=== PATIENT | male | born 1955 | race African-American/Black ===

== ENCOUNTER 2016-10-01 12:14 | Inpatient (IN) | payer MEDICARE, MEDICAID ==
[2016-10-01] VITALS (9 sets, daily range): BP systolic 165–188; BP diastolic 70–96
[~2016-10-01] VITALS: Ht 167.6 cm; Wt 56.7 kg
[~2016-10-01 12:14] MED LIST: ACET160S PO; ALLO100T PO; ASPI81TA2 PO; BISA10SU61 RC; CRAN425C PO; DOCU-25 PO; MAGN400O4 PO; NA P133E RC; POTA20PA15 PO; VALP250S3 PO
[2016-10-01 13:30] LABS: BASOPHILS % (AUTO) 0.5 % (0.0-2.0); DIFF TOTAL % 100 %; EOSINOPHILS # (AUTO) 0.3 /CMM (0.0-0.7); EOSINOPHILS % (AUTO) 5.7 % (0.0-6.0); HEMATOCRIT 21 % (39-51); LYMPHOCYTES # (AUTO) 1.2 /CMM (0.8-4.8); MEAN CORPUSCULAR HEMOGLOBIN 33 PG (26.0-33.0); MEAN CORPUSCULAR HGB CONC 32 g/dl (31.0-36.0); MEAN CORPUSCULAR VOLUME 102 fL (80-96); MONOCYTES # (AUTO) 0.4 /CMM (0.1-1.30); MONOCYTES % (AUTO) 7.2 % (2.0-12.0); NEUTROPHILS # (AUTO) 3.2 /CMM (1.8-8.9); NEUTROPHILS % (AUTO) 62.6 % (43.0-81.0); PLATELET COUNT (AUTO) 193 /CMM (150-450); RED BLOOD CELL COUNT(AUTO) 2.06 MIL/uL (4.5-6.0); WHITE BLOOD COUNT (AUTO) 5.1 K/uL (4.3-11.0)
[2016-10-01 13:33] LABS: HEMOGLOBIN 6.7 g/dL (13.5-17.5)
[2016-10-01 13:46] LABS: INR 0.93 (0.87-1.13)
[2016-10-01 13:52] LABS: ALBUMIN 3.3 g/dL (3.4-5.0); BILIRUBIN,DIRECT 0.1 mg/dL (0.0-0.2); BILIRUBIN,TOTAL 0.3 mg/dL (0.2-1.0); CALCIUM, SERUM 8.6 mg/dL (8.5-10.1); INDIRECT BILIRUBIN 0.2 mg/dL (0.0-1.1); POTASSIUM 4.2 mmol/L (3.5-5.1); TOTAL PROTEIN, SERUM 6.8 g/dL (6.4-8.2)
[2016-10-01] MEDS ORDERED: PANTOPRAZOLE 40 MG VIAL IV ONE (14:00)
[2016-10-01 14:03] LABS: CREATININE 10.1 mg/dL (0.6-1.3)
[2016-10-01] MEDS ORDERED: BLOOD IV SET 1 EA INFUS.SET MC ONE (14:03)
[2016-10-01] MEDS ORDERED: IV NS 0.9% 50 ML IV ONE (14:03)
[2016-10-01] MEDS ORDERED: PANTOPRAZOLE 40 MG VIAL ONE (14:03)
[2016-10-01] MEDS ORDERED: ACET-868 PO (14:09)
[2016-10-01] MEDS ORDERED: BENA20TA2 PO (14:09)
[2016-10-01] MEDS ORDERED: CARV6.25 PO (14:09)
[2016-10-01] MEDS ORDERED: PANT40TA4 PO (14:09)
[2016-10-01] MEDS ORDERED: BENA10TA2 PO (14:09)
[2016-10-01] MEDS ORDERED: HYDR-3326 PO (14:09)
[2016-10-01] MEDS ORDERED: CHOL100044 PO (14:09)
[2016-10-01] MEDS ORDERED: FOLI0.4T2 PO (14:09)
[2016-10-01] MEDS ORDERED: AMIN30LI4 PO (14:09)
[2016-10-01] MEDS ORDERED: CYAN100096 PO (14:09)
[2016-10-01] MEDS ORDERED: SEVE400T PO (14:09)
[2016-10-01 14:40] LABS: EOSINOPHILS % (MANUAL) 4 % (0-4); LYMPHOCYTES % (MANUAL) 25 % (16-48); PLATELET ESTIMATE ADEQUATE
[2016-10-01 14:41] LABS: ANISOCYTOSIS 1+; HYPOCHROMASIA SLT
[2016-10-01] MEDS ORDERED: DILTIAZEM HCL 30 MG TABLET PO ONE (18:30)
[2016-10-01] MEDS: DOCUSATE SODIUM 100 MG CAPSULE PO SCH (21:30)
[2016-10-01] MEDS: hydrALAZINE HCL IV 20 MG VIAL IV PRN (21:46)
[2016-10-02] VITALS: BP 144/60
[2016-10-02 04:00] VITALS: BP 138/72
[2016-10-02 08:00] VITALS: BP 149/90
[2016-10-02] MEDS ORDERED: ACETAMINOPHEN 325 MG TABLET PO PRN (08:30)
[2016-10-02] MEDS: PANTOPRAZOLE 40 MG TABLET.DR PO SCH ×2 (08:50→17:07)
[2016-10-02] MEDS: FOLIC ACID 1 MG TABLET PO SCH (08:50)
[2016-10-02] MEDS: SEVELAMER CARBONATE 800 MG TABLET PO SCH ×3 (08:50→17:06)
[2016-10-02] MEDS: CARVEDILOL 6.25 MG TABLET PO SCH ×2 (08:50→17:06)
[2016-10-02] MEDS: BENAZEPRIL HCL 20 MG TABLET PO SCH ×2 (08:50→17:06)
[2016-10-02] MEDS: CYANOCOBALAMIN 500 MCG TABLET PO SCH (08:50)
[2016-10-02] MEDS: PROSOURCE / PROSTAT (PYXIS) 30 ML UDC PO SCH (08:51)
[2016-10-02] MEDS ORDERED: EPOETIN ALFA (10,000 UNIT) 10,000 UNIT/ML VIAL IV ONE (10:00)
[2016-10-02 11:24] LABS: BASOPHILS # (AUTO) 0.1 /CMM (0.0-0.2); DIFF TOTAL % 100 %; EOSINOPHILS # (AUTO) 0.4 /CMM (0.0-0.7); EOSINOPHILS % (AUTO) 5.5 % (0.0-6.0); HEMATOCRIT 25 % (39-51); HEMOGLOBIN 8.2 g/dL (13.5-17.5); LYMPHOCYTES # (AUTO) 0.9 /CMM (0.8-4.8); LYMPHOCYTES % (AUTO) 14.5 % (20.0-44.0); MEAN CORPUSCULAR HEMOGLOBIN 31 PG (26.0-33.0); MEAN CORPUSCULAR HGB CONC 33 g/dl (31.0-36.0); MEAN CORPUSCULAR VOLUME 94 fL (80-96); MONOCYTES # (AUTO) 0.5 /CMM (0.1-1.30); MONOCYTES % (AUTO) 7.2 % (2.0-12.0); NEUTROPHILS # (AUTO) 4.6 /CMM (1.8-8.9); NEUTROPHILS % (AUTO) 71.8 % (43.0-81.0); PLATELET COUNT (AUTO) 177 /CMM (150-450); RED BLOOD CELL COUNT(AUTO) 2.63 MIL/uL (4.5-6.0); WHITE BLOOD COUNT (AUTO) 6.4 K/uL (4.3-11.0)
[2016-10-02 11:39] LABS: LACTIC ACID 0.6 mmol/L (0.4-2.0)
[2016-10-02 11:40] LABS: ALBUMIN 3.1 g/dL (3.4-5.0); BILIRUBIN,DIRECT 0.1 mg/dL (0.0-0.2); BILIRUBIN,TOTAL 0.4 mg/dL (0.2-1.0); CALCIUM, SERUM 8.5 mg/dL (8.5-10.1); INDIRECT BILIRUBIN 0.3 mg/dL (0.0-1.1); PHOSPHORUS 7.3 mg/dL (2.5-4.9); POTASSIUM 4.6 mmol/L (3.5-5.1); TOTAL PROTEIN, SERUM 6.3 g/dL (6.4-8.2)
[2016-10-02 11:42] LABS: CREATININE 10.4 mg/dL (0.6-1.3)
[2016-10-02 11:53] LABS: INR 0.94 (0.87-1.13); PROTHROMBIN TIME 10.1 SECS (9.5-12.7)
[2016-10-02 11:59] LABS: ERYTHROCYTE SEDIMENTATION RATE 32 MM/HR (0-20)
[2016-10-02 12:00] VITALS: BP 155/87
[2016-10-02 16:00] VITALS: BP 156/86
[2016-10-02 20:00] VITALS: BP 156/93
[2016-10-02] MEDS: DOCUSATE SODIUM 100 MG CAPSULE PO SCH (21:16)
[2016-10-03] VITALS: BP 176/105
[2016-10-03] MEDS: hydrALAZINE HCL IV 20 MG VIAL IV PRN ×2 (00:25→06:45)
[2016-10-03 04:00] VITALS: BP_SYST 125; BP_SYST 163; BP_DIAS 80; BP_DIAS 85
[2016-10-03 06:52] LABS: BASOPHILS # (AUTO) 0.1 /CMM (0.0-0.2); DIFF TOTAL % 100 %; EOSINOPHILS # (AUTO) 0.3 /CMM (0.0-0.7); EOSINOPHILS % (AUTO) 5.3 % (0.0-6.0); HEMATOCRIT 24 % (39-51); HEMOGLOBIN 7.9 g/dL (13.5-17.5); LYMPHOCYTES # (AUTO) 1.1 /CMM (0.8-4.8); LYMPHOCYTES % (AUTO) 18.6 % (20.0-44.0); MEAN CORPUSCULAR HEMOGLOBIN 31 PG (26.0-33.0); MEAN CORPUSCULAR HGB CONC 33 g/dl (31.0-36.0); MEAN CORPUSCULAR VOLUME 95 fL (80-96); MONOCYTES # (AUTO) 0.6 /CMM (0.1-1.30); MONOCYTES % (AUTO) 9.8 % (2.0-12.0); NEUTROPHILS # (AUTO) 3.9 /CMM (1.8-8.9); NEUTROPHILS % (AUTO) 65.3 % (43.0-81.0); PLATELET COUNT (AUTO) 160 /CMM (150-450); RED BLOOD CELL COUNT(AUTO) 2.53 MIL/uL (4.5-6.0)
[2016-10-03 07:17] LABS: ALBUMIN 2.8 g/dL (3.4-5.0); BILIRUBIN,TOTAL 0.3 mg/dL (0.2-1.0); CREATININE 6.9 mg/dL (0.6-1.3); PHOSPHORUS 4.7 mg/dL (2.5-4.9); POTASSIUM 3.7 mmol/L (3.5-5.1)
[2016-10-03 07:47] LABS: TROPONIN I 0.442 ng/mL (0.00-0.056)
[2016-10-03 08:00] VITALS: BP 161/90
[2016-10-03] MEDS: SEVELAMER CARBONATE 800 MG TABLET PO SCH ×3 (09:07→17:03)
[2016-10-03] MEDS: PROSOURCE / PROSTAT (PYXIS) 30 ML UDC PO SCH (09:07)
[2016-10-03] MEDS: CYANOCOBALAMIN 500 MCG TABLET PO SCH (09:07)
[2016-10-03] MEDS: CARVEDILOL 6.25 MG TABLET PO SCH ×2 (09:07→17:03)
[2016-10-03] MEDS: PANTOPRAZOLE 40 MG TABLET.DR PO SCH ×2 (09:08→17:03)
[2016-10-03] MEDS: FOLIC ACID 1 MG TABLET PO SCH (09:08)
[2016-10-03] MEDS: BENAZEPRIL HCL 20 MG TABLET PO SCH ×2 (09:08→17:03)
[2016-10-03 12:00] VITALS: BP 137/68
[2016-10-03 16:00] VITALS: BP 160/83
[2016-10-03 20:00] VITALS: BP 147/81
[2016-10-03] MEDS: DOCUSATE SODIUM 100 MG CAPSULE PO SCH (21:22)
[2016-10-04] VITALS (11 sets, daily range): BP systolic 139–168; BP diastolic 71–95
[2016-10-04] MEDS: HYDROCODONE/APAP 5/325MG 1 EACH TABLET PO PRN (04:47)
[2016-10-04 06:47] LABS: BASOPHILS % (AUTO) 0.7 % (0.0-2.0); DIFF TOTAL % 100 %; EOSINOPHILS # (AUTO) 0.4 /CMM (0.0-0.7); EOSINOPHILS % (AUTO) 6.5 % (0.0-6.0); HEMATOCRIT 23 % (39-51); HEMOGLOBIN 7.4 g/dL (13.5-17.5); LYMPHOCYTES # (AUTO) 1.3 /CMM (0.8-4.8); LYMPHOCYTES % (AUTO) 23.3 % (20.0-44.0); MEAN CORPUSCULAR HEMOGLOBIN 32 PG (26.0-33.0); MEAN CORPUSCULAR HGB CONC 33 g/dl (31.0-36.0); MEAN CORPUSCULAR VOLUME 97 fL (80-96); MONOCYTES # (AUTO) 0.5 /CMM (0.1-1.30); MONOCYTES % (AUTO) 9.5 % (2.0-12.0); NEUTROPHILS # (AUTO) 3.4 /CMM (1.8-8.9); PLATELET COUNT (AUTO) 146 /CMM (150-450); RED BLOOD CELL COUNT(AUTO) 2.35 MIL/uL (4.5-6.0); WHITE BLOOD COUNT (AUTO) 5.6 K/uL (4.3-11.0)
[2016-10-04 07:28] LABS: POTASSIUM 3.9 mmol/L (3.5-5.1)
[2016-10-04] MEDS: PROSOURCE / PROSTAT (PYXIS) 30 ML UDC PO SCH (09:03)
[2016-10-04] MEDS: CYANOCOBALAMIN 500 MCG TABLET PO SCH (09:03)
[2016-10-04] MEDS: SEVELAMER CARBONATE 800 MG TABLET PO SCH ×3 (09:03→18:13)
[2016-10-04] MEDS: PANTOPRAZOLE 40 MG TABLET.DR PO SCH ×2 (09:04→18:13)
[2016-10-04] MEDS: BENAZEPRIL HCL 20 MG TABLET PO SCH ×2 (09:04→18:14)
[2016-10-04] MEDS: FOLIC ACID 1 MG TABLET PO SCH (09:04)
[2016-10-04] MEDS: CARVEDILOL 6.25 MG TABLET PO SCH ×2 (09:04→18:14)
[2016-10-04] MEDS ORDERED: BLOOD IV SET 1 EA INFUS.SET MC ONE (11:04)
[2016-10-04] MEDS ORDERED: IV NS 0.9% 0 ML IV ONE (11:04)
[2016-10-04] MEDS: DOCUSATE SODIUM 100 MG CAPSULE PO SCH (21:57)
[2016-10-05 04:00] VITALS: BP 140/90
[2016-10-05] MEDS: HYDROCODONE/APAP 5/325MG 1 EACH TABLET PO PRN (04:01)
[2016-10-05 06:33] LABS: BASOPHILS % (AUTO) 0.5 % (0.0-2.0); DIFF TOTAL % 100 %; EOSINOPHILS # (AUTO) 0.5 /CMM (0.0-0.7); EOSINOPHILS % (AUTO) 7.3 % (0.0-6.0); HEMATOCRIT 32 % (39-51); HEMOGLOBIN 10.7 g/dL (13.5-17.5); LYMPHOCYTES # (AUTO) 1.5 /CMM (0.8-4.8); MEAN CORPUSCULAR HEMOGLOBIN 32 PG (26.0-33.0); MEAN CORPUSCULAR HGB CONC 33 g/dl (31.0-36.0); MEAN CORPUSCULAR VOLUME 95 fL (80-96); MONOCYTES # (AUTO) 0.6 /CMM (0.1-1.30); MONOCYTES % (AUTO) 9.2 % (2.0-12.0); PLATELET COUNT (AUTO) 136 /CMM (150-450); RED BLOOD CELL COUNT(AUTO) 3.39 MIL/uL (4.5-6.0); WHITE BLOOD COUNT (AUTO) 6.6 K/uL (4.3-11.0)
[2016-10-05 06:43] LABS: CALCIUM, SERUM 8.3 mg/dL (8.5-10.1); CREATININE 6.6 mg/dL (0.6-1.3); POTASSIUM 3.7 mmol/L (3.5-5.1)
[2016-10-05 08:00] VITALS: BP 172/98
[2016-10-05] MEDS: PROSOURCE / PROSTAT (PYXIS) 30 ML UDC PO SCH (08:40)
[2016-10-05] MEDS: SEVELAMER CARBONATE 800 MG TABLET PO SCH ×3 (08:41→17:03)
[2016-10-05] MEDS: CYANOCOBALAMIN 500 MCG TABLET PO SCH (08:41)
[2016-10-05] MEDS: BENAZEPRIL HCL 20 MG TABLET PO SCH ×2 (08:42→17:04)
[2016-10-05] MEDS: CARVEDILOL 6.25 MG TABLET PO SCH ×2 (08:42→17:04)
[2016-10-05] MEDS: FOLIC ACID 1 MG TABLET PO SCH (08:43)
[2016-10-05] MEDS: PANTOPRAZOLE 40 MG TABLET.DR PO SCH ×2 (08:43→17:03)
[2016-10-05] MEDS: hydrALAZINE HCL 10 MG TABLET PO SCH ×3 (08:43→21:32)
[2016-10-05 12:00] VITALS: BP 162/93
[2016-10-05 16:00] VITALS: BP_SYST 162; BP_DIAS 92; BP_DIAS 98
[2016-10-05 20:00] VITALS: BP 173/97
[2016-10-05] MEDS: DOCUSATE SODIUM 100 MG CAPSULE PO SCH (21:31)
[2016-10-06 04:00] VITALS: BP 188/95
[2016-10-06] MEDS: hydrALAZINE HCL 10 MG TABLET PO SCH (04:11)
[2016-10-06 07:34] LABS: BASOPHILS % (AUTO) 0.8 % (0.0-2.0); DIFF TOTAL % 100 %; EOSINOPHILS # (AUTO) 0.4 /CMM (0.0-0.7); HEMATOCRIT 35 % (39-51); HEMOGLOBIN 11.7 g/dL (13.5-17.5); LYMPHOCYTES # (AUTO) 1.2 /CMM (0.8-4.8); LYMPHOCYTES % (AUTO) 19.5 % (20.0-44.0); MEAN CORPUSCULAR HEMOGLOBIN 31 PG (26.0-33.0); MEAN CORPUSCULAR HGB CONC 33 g/dl (31.0-36.0); MEAN CORPUSCULAR VOLUME 95 fL (80-96); MONOCYTES # (AUTO) 0.5 /CMM (0.1-1.30); MONOCYTES % (AUTO) 8.3 % (2.0-12.0); NEUTROPHILS % (AUTO) 64.4 % (43.0-81.0); PLATELET COUNT (AUTO) 171 /CMM (150-450); RED BLOOD CELL COUNT(AUTO) 3.73 MIL/uL (4.5-6.0); WHITE BLOOD COUNT (AUTO) 6.3 K/uL (4.3-11.0)
[2016-10-06 07:45] LABS: CALCIUM, SERUM 8.7 mg/dL (8.5-10.1); POTASSIUM 4.3 mmol/L (3.5-5.1)
[2016-10-06 07:49] LABS: CREATININE 8.5 mg/dL (0.6-1.3)
[2016-10-06 08:00] VITALS: BP 170/91
[2016-10-06] MEDS: PROSOURCE / PROSTAT (PYXIS) 30 ML UDC PO SCH (08:50)
[2016-10-06] MEDS: SEVELAMER CARBONATE 0.8 GM POWD.PACK PO SCH ×3 (08:50→17:10)
[2016-10-06] MEDS: CYANOCOBALAMIN 500 MCG TABLET PO SCH (08:51)
[2016-10-06] MEDS: PANTOPRAZOLE 40 MG TABLET.DR PO SCH ×2 (08:51→16:54)
[2016-10-06] MEDS: BENAZEPRIL HCL 20 MG TABLET PO SCH ×2 (11:27→16:53)
[2016-10-06] MEDS: CARVEDILOL 6.25 MG TABLET PO SCH ×2 (11:29→16:53)
[2016-10-06] MEDS: FOLIC ACID 1 MG TABLET PO SCH (11:29)
[2016-10-06 16:00] VITALS: BP 164/98
[2016-10-06] MEDS ORDERED: PEG 3350/NA SULF,BICARB,CL/KCL 4,000 ML BOTTLE PO ONE (16:30)
[2016-10-06] MEDS ORDERED: hydrALAZINE HCL 25 MG TABLET ONE (21:02)
[2016-10-06] MEDS: DOCUSATE SODIUM 100 MG CAPSULE PO SCH (21:17)
[2016-10-06] MEDS: hydrALAZINE HCL 25 MG TABLET PO SCH (21:17)
[2016-10-07] VITALS: BP 163/94
[2016-10-07 06:26] LABS: BASOPHILS # (AUTO) 0.1 /CMM (0.0-0.2); BASOPHILS % (AUTO) 0.9 % (0.0-2.0); DIFF TOTAL % 100 %; EOSINOPHILS # (AUTO) 0.4 /CMM (0.0-0.7); HEMATOCRIT 35 % (39-51); HEMOGLOBIN 11.6 g/dL (13.5-17.5); LYMPHOCYTES # (AUTO) 1.3 /CMM (0.8-4.8); LYMPHOCYTES % (AUTO) 19.2 % (20.0-44.0); MEAN CORPUSCULAR HEMOGLOBIN 32 PG (26.0-33.0); MEAN CORPUSCULAR HGB CONC 33 g/dl (31.0-36.0); MEAN CORPUSCULAR VOLUME 95 fL (80-96); MONOCYTES # (AUTO) 0.6 /CMM (0.1-1.30); MONOCYTES % (AUTO) 9.1 % (2.0-12.0); NEUTROPHILS # (AUTO) 4.3 /CMM (1.8-8.9); NEUTROPHILS % (AUTO) 64.8 % (43.0-81.0); PLATELET COUNT (AUTO) 168 /CMM (150-450); RED BLOOD CELL COUNT(AUTO) 3.68 MIL/uL (4.5-6.0); WHITE BLOOD COUNT (AUTO) 6.7 K/uL (4.3-11.0)
[2016-10-07 06:43] LABS: TROPONIN I 0.056 ng/mL (0.00-0.056)
[2016-10-07 06:53] LABS: CALCIUM, SERUM 8.4 mg/dL (8.5-10.1); CREATININE 6.9 mg/dL (0.6-1.3); POTASSIUM 3.9 mmol/L (3.5-5.1)
[2016-10-07 07:34] LABS: INR 0.96 (0.87-1.13); PROTHROMBIN TIME 10.4 SECS (9.5-12.7)
[2016-10-07 08:00] VITALS: BP 151/97
[2016-10-07] MEDS: SEVELAMER CARBONATE 0.8 GM POWD.PACK PO SCH ×3 (08:00→17:06)
[2016-10-07] MEDS: PANTOPRAZOLE 40 MG TABLET.DR PO SCH ×2 (09:00→17:07)
[2016-10-07] MEDS: PROSOURCE / PROSTAT (PYXIS) 30 ML UDC PO SCH (09:00)
[2016-10-07] MEDS: CYANOCOBALAMIN 500 MCG TABLET PO SCH (09:00)
[2016-10-07] MEDS: hydrALAZINE HCL 25 MG TABLET PO SCH ×4 (09:00→21:40)
[2016-10-07] MEDS: BENAZEPRIL HCL 20 MG TABLET PO SCH ×2 (09:00→17:08)
[2016-10-07] MEDS: FOLIC ACID 1 MG TABLET PO SCH (09:00)
[2016-10-07] MEDS: CARVEDILOL 6.25 MG TABLET PO SCH ×2 (09:00→17:08)
[2016-10-07 16:00] VITALS: BP_SYST 170; BP_SYST 184; BP_DIAS 97
[2016-10-07 20:00] VITALS: BP 145/96
[2016-10-07] MEDS: DOCUSATE SODIUM 100 MG CAPSULE PO SCH (21:40)
[2016-10-08 04:00] VITALS: BP 138/79
[2016-10-08 08:00] VITALS: BP 176/94
[2016-10-08] MEDS: CARVEDILOL 6.25 MG TABLET PO SCH ×2 (08:56→17:51)
[2016-10-08] MEDS: SEVELAMER CARBONATE 0.8 GM POWD.PACK PO SCH ×3 (08:56→17:52)
[2016-10-08] MEDS: PROSOURCE / PROSTAT (PYXIS) 30 ML UDC PO SCH (08:57)
[2016-10-08] MEDS: FOLIC ACID 1 MG TABLET PO SCH (08:57)
[2016-10-08] MEDS: BENAZEPRIL HCL 20 MG TABLET PO SCH ×2 (08:57→17:52)
[2016-10-08] MEDS: PANTOPRAZOLE 40 MG TABLET.DR PO SCH ×2 (08:58→17:52)
[2016-10-08] MEDS: CYANOCOBALAMIN 500 MCG TABLET PO SCH (08:58)
[2016-10-08] MEDS: hydrALAZINE HCL 25 MG TABLET PO SCH ×4 (09:16→21:21)
[2016-10-08 11:00] VITALS: BP 160/83
[2016-10-08 13:19] LABS: BASOPHILS % (AUTO) 0.8 % (0.0-2.0); DIFF TOTAL % 100 %; EOSINOPHILS # (AUTO) 0.3 /CMM (0.0-0.7); EOSINOPHILS % (AUTO) 5.7 % (0.0-6.0); HEMATOCRIT 34 % (39-51); HEMOGLOBIN 11.2 g/dL (13.5-17.5); LYMPHOCYTES # (AUTO) 1.2 /CMM (0.8-4.8); LYMPHOCYTES % (AUTO) 21.8 % (20.0-44.0); MEAN CORPUSCULAR HEMOGLOBIN 32 PG (26.0-33.0); MEAN CORPUSCULAR HGB CONC 33 g/dl (31.0-36.0); MEAN CORPUSCULAR VOLUME 95 fL (80-96); MONOCYTES # (AUTO) 0.5 /CMM (0.1-1.30); NEUTROPHILS # (AUTO) 3.4 /CMM (1.8-8.9); NEUTROPHILS % (AUTO) 62.7 % (43.0-81.0); PLATELET COUNT (AUTO) 196 /CMM (150-450); RED BLOOD CELL COUNT(AUTO) 3.55 MIL/uL (4.5-6.0); WHITE BLOOD COUNT (AUTO) 5.4 K/uL (4.3-11.0)
[2016-10-08 16:00] VITALS: BP 148/84
[2016-10-08 20:00] VITALS: BP 154/76
[2016-10-08] MEDS: DOCUSATE SODIUM 100 MG CAPSULE PO SCH (21:20)
[2016-10-09 04:00] VITALS: BP 110/75
[2016-10-09 08:00] VITALS: BP 129/86
[2016-10-09] MEDS: CYANOCOBALAMIN 500 MCG TABLET PO SCH (08:56)
[2016-10-09] MEDS: PROSOURCE / PROSTAT (PYXIS) 30 ML UDC PO SCH (08:56)
[2016-10-09] MEDS: SEVELAMER CARBONATE 0.8 GM POWD.PACK PO SCH ×3 (08:56→17:47)
[2016-10-09] MEDS: FOLIC ACID 1 MG TABLET PO SCH (08:57)
[2016-10-09] MEDS: PANTOPRAZOLE 40 MG TABLET.DR PO SCH ×2 (08:57→17:47)
[2016-10-09] MEDS: CARVEDILOL 6.25 MG TABLET PO SCH ×2 (08:58→17:45)
[2016-10-09] MEDS: BENAZEPRIL HCL 20 MG TABLET PO SCH ×2 (08:59→17:47)
[2016-10-09] MEDS: hydrALAZINE HCL 25 MG TABLET PO SCH ×4 (09:05→21:29)
[2016-10-09 16:00] VITALS: BP 133/89
[2016-10-09 20:00] VITALS: BP 137/77
[2016-10-09] MEDS: DOCUSATE SODIUM 100 MG CAPSULE PO SCH (21:28)
[2016-10-10 04:00] VITALS: BP 122/73
[2016-10-10 08:00] VITALS: BP 138/85
[2016-10-10] MEDS: CYANOCOBALAMIN 500 MCG TABLET PO SCH (08:39)
[2016-10-10] MEDS: CARVEDILOL 6.25 MG TABLET PO SCH (08:39)
[2016-10-10] MEDS: FOLIC ACID 1 MG TABLET PO SCH (08:39)
[2016-10-10] MEDS: SEVELAMER CARBONATE 0.8 GM POWD.PACK PO SCH ×2 (08:39→12:51)
[2016-10-10] MEDS: PANTOPRAZOLE 40 MG TABLET.DR PO SCH (08:39)
[2016-10-10] MEDS: PROSOURCE / PROSTAT (PYXIS) 30 ML UDC PO SCH (08:39)
[2016-10-10] MEDS: BENAZEPRIL HCL 20 MG TABLET PO SCH (08:40)
[2016-10-10] MEDS: hydrALAZINE HCL 25 MG TABLET PO SCH ×2 (08:43→12:51)
[2016-10-10 12:00] VITALS: BP 92/62
[2016-10-10 16:00] VITALS: BP 166/70
== END 2016-10-10 18:02 | DRG 377 ==
LOC: ER 12:19 → TELE 17:30 → TELE1 17:35 → TELE-TD 21:12 → TELE1 10-03 16:28 → MEDSG1 10-04 09:53
PROVIDERS: ADMIT Internal Medicine Rheumatology; ATTEND Internal Medicine Rheumatology
PROC: 30233N1 Transfusion of Nonautologous Red Blood Cells into Peripheral Vein, Percutaneous Approach (ICD-10-PCS; principal; 2016-10-01)
PROC: 05H633Z Insertion of Infusion Device into Left Subclavian Vein, Percutaneous Approach (ICD-10-PCS; 2016-10-02)
PROC: 5A1D60Z (ICD-10-PCS; 2016-10-02)
DX: K92.1 Melena (principal); N18.6 End stage renal disease; F20.0 Paranoid schizophrenia; I69.354 Hemiplegia and hemiparesis following cerebral infarction affecting left non-dominant side; I42.9 Cardiomyopathy, unspecified; I13.2 Hypertensive heart and chronic kidney disease with heart failure and with stage 5 chronic kidney disease, or end stage renal disease; D64.9 Anemia, unspecified; E11.22 Type 2 diabetes mellitus with diabetic chronic kidney disease; Z99.2 Dependence on renal dialysis; E87.5 Hyperkalemia; E83.39 Other disorders of phosphorus metabolism; I50.9 Heart failure, unspecified; F17.210 Nicotine dependence, cigarettes, uncomplicated; M10.9 Gout, unspecified; N40.0 Benign prostatic hyperplasia without lower urinary tract symptoms
CPT/HCPCS: 36415; 71010-TC; 76700-TC; 76856-TC; 80048-TC; 80053-TC; 80076-TC; 82272-TC; 82652; 83540-TC; 83605-TC; 83735-TC; 83880; 84100-TC; 84484-TC; 85025-TC; 85610-TC; 85652-TC; 85730-TC; 86850-TC; 86901; 86921-TC; 87081-TC; 90935-TC; A4216; A4606; C9113; J0360; J0885; J7050; P9016-BL; Z7610

== ENCOUNTER 2017-10-21 12:08 | Inpatient (IN) | payer MEDICARE, MEDICAID ==
[~2017-10-21] VITALS: Ht 162.6 cm; Wt 60.3 kg
[~2017-10-21 12:08] MED LIST changes: +ACET-868 PO; -ACET160S PO; -ALLO100T PO; +AMIN30LI4 PO; -ASPI81TA2 PO; +CARV6.25 PO; -CRAN425C PO; +CYAN100096 PO; +DOCU-141 PO; -DOCU-25 PO; +FOLI0.4T2 PO; +HYDR-3326 PO; -MAGN400O4 PO; -NA P133E RC; +PANT40TA4 PO; -POTA20PA15 PO; +SEVE400T PO; -VALP250S3 PO
--- NOTE | 2017-10-21 12:37 | NUR ---
BB PRIVATE EMS FROM [facility] FOR REFUSING DIALYSIS X 1WK. LAST HD OCTOBER 11, 2017. PT IN NO DISTRESS. AFEBRILE. VSS/
[2017-10-21 12:47] LABS: BASOPHILS # (AUTO) 0.1 /CMM (0.0-0.2); BASOPHILS % (AUTO) 1.7 % (0.0-2.0); EOSINOPHILS # (AUTO) 0.4 /CMM (0.0-0.7); HEMATOCRIT 32 % (39-51); HEMOGLOBIN 10.6 g/dL (13.5-17.5); LYMPHOCYTES % (AUTO) 16.9 % (20.0-44.0); MEAN CORPUSCULAR HEMOGLOBIN 34 PG (26.0-33.0); MEAN CORPUSCULAR HGB CONC 33 g/dl (31.0-36.0); MEAN CORPUSCULAR VOLUME 103 fL (80-96); MONOCYTES # (AUTO) 0.4 /CMM (0.1-1.30); MONOCYTES % (AUTO) 7.2 % (2.0-12.0); NEUTROPHILS # (AUTO) 4.2 /CMM (1.8-8.9); NEUTROPHILS % (AUTO) 68.2 % (43.0-81.0); PLATELET COUNT (AUTO) 212 /CMM (150-450); RDW COEFFICIENT OF VARIATION 19.7 (11.5-15.0); RED BLOOD CELL COUNT(AUTO) 3.12 MIL/uL (4.5-6.0); WHITE BLOOD COUNT (AUTO) 6.2 K/uL (4.3-11.0)
[2017-10-21 12:59] LABS: CALCIUM, SERUM 9.4 mg/dL (8.5-10.1)
[2017-10-21 13:02] LABS: INR 0.9 (0.85-1.15)
[2017-10-21] MEDS ORDERED: SODIUM POLYSTYRENE SULFONATE 15 G/60 ML BOTTLE ONE (13:49)
[2017-10-21] MEDS ORDERED: SODIUM POLYSTYRENE SULFONATE 15 G/60 ML BOTTLE PO ONE (14:00)
[2017-10-21] MEDS ORDERED: ISOS30TA6 PO (14:02)
[2017-10-21] MEDS ORDERED: ATOR10TA PO (14:02)
[2017-10-21] MEDS ORDERED: MIRT15TA PO (14:02)
[2017-10-21] MEDS ORDERED: BENA20TA2 PO (14:02)
[2017-10-21] MEDS ORDERED: ASPI-1169 PO (14:02)
[2017-10-21] MEDS ORDERED: DIPH25CA83 PO (14:02)
[2017-10-21] MEDS ORDERED: FOLI1TAB16 PO (14:02)
[2017-10-21] MEDS ORDERED: CINA30TA2 PO (14:02)
[2017-10-21] MEDS ORDERED: HYDR-4076 PO (14:02)
[2017-10-21] MEDS ORDERED: CRAN425C6 PO (14:02)
[2017-10-21] MEDS ORDERED: ASCO500T9 PO (14:02)
[2017-10-21] MEDS ORDERED: PANT40TA2 PO (14:02)
[2017-10-21] MEDS ORDERED: VITA1TAB20 PO (14:02)
[2017-10-21] MEDS ORDERED: MAGNESIUM HYDROXIDE 30 ML UDC PO PRN (14:30)
[2017-10-21] MEDS ORDERED: Z GUARD REMEDY 2 OZ OINT TP PRN (14:30)
[2017-10-21] MEDS ORDERED: ACETAMINOPHEN 325 MG TABLET PO PRN ×2 (14:30→19:00)
[2017-10-21] MEDS ORDERED: HYDROCODONE/APAP 5/325MG 1 EACH TABLET PO PRN ×3 (14:30→19:00)
[2017-10-21] MEDS ORDERED: ZOLPIDEM TARTRATE 5 MG TABLET PO PRN (14:30)
[2017-10-21] MEDS ORDERED: MAG HYDROX/AL HYDROX/SIMETH 30 ML UDC PO PRN (14:30)
--- NOTE | 2017-10-21 15:34 | NUR ---
Patient discharged to home in stable condition. Written and verbal after care instructions given. Patient verbalizes understanding of instruction.
--- NOTE | 2017-10-21 15:39 | NUR ---
GABRIELA INITIAL NOTE RECEIVED PATIENT FROM ER. REPORT RECEIVED. ALL SAFETY MEASURES IN PLACE. WILL BEGIN ADMISSION.
[2017-10-21 16:00] VITALS: BP 187/101
--- NOTE | 2017-10-21 17:08 | NUR ---
GABRIELA NOTE CALLED [facility] REGARDING HD FOR PATIENT TODAY AWAITING CALL BACK. CALLED DR. HORNER REGARDING PT B/P AWAITING CALL BACK. Addendum: 10/22/17 at 0703 by KAYLA KU RN PATIENT REFUSED TO TAKE PANTS OFF UNABLE TO ASSESS SKIN FOR WOUNDS. PATIENT STATED SKIN IS INTACT. UNABLE TO TAKE PHOTOS OF PATIENT.
--- NOTE | 2017-10-21 18:23 | NUR ---
GABRIELA RN NOTE DR. HORNER ORDERED CLONIDINE 0.2 MG Q6 FOR B/P GREATER 160/90. ALSO REPORT PT IS YELLING AND CUSSING AT HD NURSE VIANCA.
[2017-10-21] MEDS: ONDANSETRON HCL/PF 4 MG/2 ML VIAL IVP PRN (19:00)
--- NOTE | 2017-10-21 19:40 | NUR ---
GABRIELA RN NOTE PT IN BED ALSEEP, AROUSABLE, NO DISTRESS OR DISCOMFORT NOTED. DENIES PAIN. PT IS CALM AND RELAXED. HD FINISHED 2L OUTPUT PER HD NURSE, VSCamila. S/L IN RT HAND # 20 G INTACT AND PATENT. SIDE RAILS UP X 2 AND CALL LIGHT WITHIN REACH. CONTINUE TO MONITOR HIM.
[2017-10-21 19:45] VITALS: BP 135/80
[2017-10-21] MEDS: hydrALAZINE HCL 25 MG TABLET PO SCH (21:44)
[2017-10-21] MEDS: MIRTAZAPINE 15 MG TABLET PO SCH (21:45)
[2017-10-21] MEDS: ATORVASTATIN 10 MG TABLET PO SCH (21:45)
[2017-10-21] MEDS: CLONIDINE HCL 0.1 MG TABLET PO PRN (21:46)
[2017-10-21 21:48] VITALS: BP 168/92
[2017-10-21] MEDS ORDERED: diphenhydrAMINE HCL 25 MG CAPSULE PO PRN (22:00)
[2017-10-21 22:48] VITALS: BP 145/65
[2017-10-22] VITALS (7 sets, daily range): BP systolic 121–162; BP diastolic 65–92
[2017-10-22] MEDS: CLONIDINE HCL 0.1 MG TABLET PO PRN (04:21)
--- NOTE | 2017-10-22 04:25 | NUR ---
GABRIELA RN NOTE PT IN BED ASLEEP, B/P WENT UP TO 162/92, CATAPRESS 0.2 MG PO GIVEN. PT DENIES ANY DISCOMFORT. FLUIDS GIVEN.
--- NOTE | 2017-10-22 04:55 | NUR ---
GABRIELA RN NOTE B/P CAME DOWN TO 128/70. HR 78
[2017-10-22] MEDS: hydrALAZINE HCL 25 MG TABLET PO SCH ×3 (04:56→21:30)
--- NOTE | 2017-10-22 06:33 | NUR ---
GABRIELA RN NOTE PT IN BED ASLEEP, EASILY AROUSABLE. NO DISTRESS OR DISCOMFORT NOTED. DENIES PAIN. SL ON RT HAND INTACT AND PATENT. ON TELE SR HR IN 70. SIDE RAILS UP X 2 AND CALL LIGHT WITHIN REACH. WILL ENDORSE TO DAY SHIFT NURSE FOR CONTINUE TO CARE.
[2017-10-22 06:34] LABS: BASOPHILS % (AUTO) 0.6 % (0.0-2.0); EOSINOPHILS # (AUTO) 0.3 /CMM (0.0-0.7); HEMATOCRIT 27 % (39-51); HEMOGLOBIN 8.8 g/dL (13.5-17.5); LYMPHOCYTES # (AUTO) 0.9 /CMM (0.8-4.8); MEAN CORPUSCULAR HEMOGLOBIN 33 PG (26.0-33.0); MEAN CORPUSCULAR HGB CONC 32 g/dl (31.0-36.0); MEAN CORPUSCULAR VOLUME 103 fL (80-96); MONOCYTES # (AUTO) 0.7 /CMM (0.1-1.30); MONOCYTES % (AUTO) 9.4 % (2.0-12.0); NEUTROPHILS # (AUTO) 5.9 /CMM (1.8-8.9); PLATELET COUNT (AUTO) 162 /CMM (150-450); RDW COEFFICIENT OF VARIATION 20.3 (11.5-15.0); RED BLOOD CELL COUNT(AUTO) 2.65 MIL/uL (4.5-6.0); WHITE BLOOD COUNT (AUTO) 7.8 K/uL (4.3-11.0)
[2017-10-22 06:48] LABS: CALCIUM, SERUM 8.1 mg/dL (8.5-10.1); MAGNESIUM 2.6 mg/dL (1.8-2.4); PHOSPHORUS 4.5 mg/dL (2.5-4.9); POTASSIUM 5.1 mmol/L (3.5-5.1)
[2017-10-22 06:53] LABS: CREATININE 13.4 mg/dL (0.6-1.3)
--- NOTE | 2017-10-22 07:30 | NUR ---
GABRIELA RN AM NOTE PT IN BED, AAO X 3, ON RA, NOT IN ANY DISTRESS, TELEMETRY READS SR HR 69 WITH PVCs. DENIES ANY CHEST DISCOMFORT AT THIS TIME. LCW HD CATH IN PLACE, CDI DRESSING, RT HAND G20 FLUSHES WELL, SITE CLEAR, CARDIAC DIET, BEDBOUND, SIDE RAILS UP X 2 AND CALL LIGHT WITHIN REACH. WILL CONTINUE TO MONITOR.
[2017-10-22] MEDS ORDERED: Medication Not On Formulary EA (Cranberry Extract (Cranberry) 425 MG) PO SCH (09:00)
[2017-10-22] MEDS: FOLIC ACID 1 MG TABLET PO SCH (09:12)
[2017-10-22] MEDS: VITAMIN B COMP W-C 1 TAB TABLET PO SCH (09:12)
[2017-10-22] MEDS: CINACALCET HCL 30 MG TABLET PO SCH (09:12)
[2017-10-22] MEDS: PANTOPRAZOLE 40 MG TABLET.DR PO SCH (09:12)
[2017-10-22] MEDS: ASCORBIC ACID 500 MG TABLET PO SCH (09:13)
[2017-10-22] MEDS: CYANOCOBALAMIN 500 MCG TABLET PO SCH (09:13)
[2017-10-22] MEDS: BENAZEPRIL HCL 20 MG TABLET PO SCH ×2 (09:13→16:26)
[2017-10-22] MEDS: ISOSORBIDE MONONITRATE (30MG) 30 MG TAB.SR.24H PO SCH (09:14)
[2017-10-22] MEDS: CARVEDILOL 6.25 MG TABLET PO SCH ×2 (09:14→16:26)
[2017-10-22] MEDS: ASPIRIN 81 MG TAB.CHEW PO SCH (09:16)
--- NOTE | 2017-10-22 09:30 | NUR ---
GABRIELA RN NOTES DUE MEDS GIVEN, PER ISHA HD NURSE, PATIENT REFUSED HD
--- NOTE | 2017-10-22 13:31 | NUR ---
GABRIELA RN NOTES PT MOVED TO RM 105. SEEN BY EVENS BALTAZAR EARLIER. DR. CISNEROS FOR PSYCH CONSULT. PATIENT HEARING VOICES. 1:1 SITTER. 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
--- NOTE | 2017-10-22 15:53 | NUR ---
PT.ASLEEP ,NO ACUTE DISTRESS.
--- NOTE | 2017-10-22 19:17 | NUR ---
GABRIELA RN CLOSING NOTE PT IN BED,RESTING, AAO X 3, ON RA, NOT IN ANY DISTRESS, TELEMETRY READS SR HR 69 WITH PVCs. DENIES ANY CHEST DISCOMFORT AT THIS TIME. LCW HD CATH IN PLACE, CDI DRESSING, RT HAND G20 FLUSHES WELL, SITE CLEAR,CARDIAC DIET, AMB WITH ASSIST, 1:1 SITTER FOR SAFETY, SIDE RAILS UP X 2 AND CALL LIGHT WITHIN REACH. ALL NEEDS MET. ENDORSED TO NEXT SHIFT FOR KIRIT. SEEN BY DR. CISNEROS EARLIER.
--- NOTE | 2017-10-22 19:34 | NUR ---
RN OPENING NOTE RECEIVED PATIENT IN THE BED AWAKE, ALERT, ORIENTED, NO RESPIRATORY DISTRESS NOTED, NO PAIN OR DISCOMFORT NOTED, WAITING FOR 1:1 SITTER, TELETYPESETTER IS AWARE, TELEMETRY READING SINUS RYTHM 83, REFUSED BODY ASSESSMENT, ON CARDIAC DIET, INSTRUCTED PATIENT TO USE CALL LIGHT WHEN NEED TO USE A BATHROOM, CALL LIGHT WITHIN REACH, BELONGINGS WITHIN REACH, BED IN THE LOWEST POSITION, BED ALARM IS ON, SIDE RAILS UP X 2, WILL CONTINUE TO MONITOR PATIENT
[2017-10-22] MEDS: ATORVASTATIN 10 MG TABLET PO SCH (21:30)
[2017-10-22] MEDS: MIRTAZAPINE 15 MG TABLET PO SCH (21:30)
[2017-10-22] MEDS: MUPIROCIN OINT 2% 22 GM TUBE SCH (21:31)
[2017-10-23] VITALS (7 sets, daily range): BP systolic 98–167; BP diastolic 26–86
[2017-10-23] MEDS: CLONIDINE HCL 0.1 MG TABLET PO PRN (00:16)
[2017-10-23] MEDS: hydrALAZINE HCL 25 MG TABLET PO SCH ×3 (05:27→21:08)
[2017-10-23 06:33] LABS: BASOPHILS % (AUTO) 0.5 % (0.0-2.0); EOSINOPHILS # (AUTO) 0.3 /CMM (0.0-0.7); EOSINOPHILS % (AUTO) 6.6 % (0.0-6.0); HEMATOCRIT 27 % (39-51); HEMOGLOBIN 8.9 g/dL (13.5-17.5); LYMPHOCYTES # (AUTO) 1.2 /CMM (0.8-4.8); LYMPHOCYTES % (AUTO) 22.7 % (20.0-44.0); MEAN CORPUSCULAR HEMOGLOBIN 34 PG (26.0-33.0); MEAN CORPUSCULAR HGB CONC 33 g/dl (31.0-36.0); MEAN CORPUSCULAR VOLUME 102 fL (80-96); MONOCYTES # (AUTO) 0.7 /CMM (0.1-1.30); MONOCYTES % (AUTO) 13.7 % (2.0-12.0); NEUTROPHILS % (AUTO) 56.5 % (43.0-81.0); PLATELET COUNT (AUTO) 141 /CMM (150-450); RDW COEFFICIENT OF VARIATION 20.4 (11.5-15.0); RED BLOOD CELL COUNT(AUTO) 2.63 MIL/uL (4.5-6.0); WHITE BLOOD COUNT (AUTO) 5.2 K/uL (4.3-11.0)
[2017-10-23 07:18] LABS: CALCIUM, SERUM 7.9 mg/dL (8.5-10.1); POTASSIUM 5.8 mmol/L (3.5-5.1)
--- NOTE | 2017-10-23 07:18 | NUR ---
RN CLOSING NOTE PT IN BED,ASLEEP, EASILY AWAKENED, SITTER IS BY BEDSIDE ON RA, NOT IN ANY DISTRESS, TELEMETRY READS SR HR 73 . DENIES ANY CHEST DISCOMFORT AT THIS TIME. LCW HD CATH IN PLACE, CDI DRESSING, RT HAND G20 FLUSHES WELL, SITE CLEAR,CARDIAC DIET, AMB WITH ASSIST, 1 SIDE RAILS UP X 2 AND CALL LIGHT WITHIN REACH. ALL NEEDS MET. ENDORSED CARE TO THE MORNING SHIFT
[2017-10-23 07:21] LABS: CREATININE 16.4 mg/dL (0.6-1.3)
--- NOTE | 2017-10-23 07:39 | NUR ---
RN OPENING NOTE RECEIVED BEDSIDE SBAR REPORT ON THE PATIENT. PATIENT IS ASLEEP, EASILY AWAKEN. DENIES PAIN/DISCOMFORT AT THIS TIME. SPO2 100% ON RA. SITTER AT THE BEDSIDE. PATIENT IS ON CONTACT ISOLATION. BED IS LOCKED, IN THE LOW POSITION, CALL LIGHT WITHIN REACH, BELONGINGS CLOSE TO THE PATIENT, SIDE RAILS UP X 3, BED ALARM IS ON. WILL CONTINUE TO ASSESS/MONITOR THROUGHOUT THE SHIFT.
[2017-10-23] MEDS: CINACALCET HCL 30 MG TABLET PO SCH (08:28)
[2017-10-23] MEDS: FOLIC ACID 1 MG TABLET PO SCH (08:28)
[2017-10-23] MEDS: CYANOCOBALAMIN 500 MCG TABLET PO SCH (08:29)
[2017-10-23] MEDS: CARVEDILOL 6.25 MG TABLET PO SCH ×2 (08:29→17:05)
[2017-10-23] MEDS: VITAMIN B COMP W-C 1 TAB TABLET PO SCH (08:29)
[2017-10-23] MEDS: ASCORBIC ACID 500 MG TABLET PO SCH (08:29)
[2017-10-23] MEDS: ISOSORBIDE MONONITRATE (30MG) 30 MG TAB.SR.24H PO SCH (08:30)
[2017-10-23] MEDS: ASPIRIN 81 MG TAB.CHEW PO SCH (08:30)
[2017-10-23] MEDS: PANTOPRAZOLE 40 MG TABLET.DR PO SCH (08:30)
[2017-10-23] MEDS: BENAZEPRIL HCL 20 MG TABLET PO SCH ×2 (08:30→17:05)
[2017-10-23] MEDS: MUPIROCIN OINT 2% 22 GM TUBE SCH ×2 (08:34→21:07)
--- NOTE | 2017-10-23 13:22 | NUR ---
bp medication held. person is scheduled for dialysis in the next hr. pr 129/75, pulse 71.
--- NOTE | 2017-10-23 16:00 | NUR ---
PATIENT REFUSED DIALYSIS. DR. MAC NOTIFIED. NO NEW ORDERS RECEIVED.
--- NOTE | 2017-10-23 18:59 | NUR ---
RN CLOSING NOTE PATIENT IS AWAKE, LAYING IN BED, AND WATCHING TV WITH THE SITTER AT THE BEDSIDE. DENIES PAIN/DISCOMFORT AT THIS TIME. SPO2 98% ON RA. PATIENT IS ON CONTACT ISOLATION. PATIENT REFUSED HEMODIALYSIS TODAY. PATIENT AGREED TO TAKE MEDICATIONS PRESCRIBED. ALL DUE MEDICATIONS ADMINISTERED. NO SIGNIFICANT CHANGE IN CONDITION THROUGHOUT THE SHIFT. BED IS LOCKED, IN THE LOW POSITION, CALL LIGHT WITHIN REACH, BELONGINGS CLOSE TO THE PATIENT, SIDE RAILS UP X 3, BED ALARM IS ON. WILL ENDORSE TO THE CONTACT LENS TECHNICIAN NURSE FOR KIRIT.
--- NOTE | 2017-10-23 19:15 | NUR ---
TELE/AGRICULTURE INSPECTOR; RECEIVED PT'S REPORTS FROM THE DAY SHIFT RN FOR CONTINUITY OF CARE. AT THIS TIME PT INBED WITH THE DAY SHIFT SITTER IN THE ROOM. PT IS QUIET IN BED AWAKE WHEN I ASKED HOW HE IS DOING HE SAID I AM FINE. DENIES PAIN. BREATHING NON LABORED. PT IS ALERT TO HIS NAME AND THE PLACE BUT HE DOES NOT KNOW THE NAME OF THE HOSPITAL. HE DOES NOT KNOW THE DATE AND WHAT DAY IS TODAY. PT ON TELEMETRY. HL ON RT HAND # 20 I FLUSHED WITH NS PATENT NO PAIN NOR REDNESS AND SWELLING. HAS HD CATH ON LESLIE WITH 2 PORTS INTACT WITH DRESSING CLEAN AND DRY. BED ON LOWER POSITION AND LOCKED FOR SAFETY. SIDE RAILS OF UPPER PART OF BED ARE UP FOR SAFETY. CALL LIGHT WITHIN REACH. ON CONTACT ISOLATION OBSERVED. NIGHT SITTER PRESENT NOW. WILL CONTINUE TO MONITOR.
--- NOTE | 2017-10-23 21:00 | NUR ---
TELE/MANAGER COMPLIANCE; DUE MEDS TAKEN WITHOUT PROBLEM.
[2017-10-23] MEDS: ATORVASTATIN 10 MG TABLET PO SCH (21:56)
[2017-10-23] MEDS: MIRTAZAPINE 15 MG TABLET PO SCH (21:57)
--- NOTE | 2017-10-23 22:00 | NUR ---
TELE/BUSINESS AFFAIRS MANAGER; DUE PO MEDS. TAKEN WITHOUT PROBLEM. DENIES ANY PAIN NOR DISCOMFORT. PT WANTS LIGHTS IN THE ROOM TURN OFF, I DID TURN OFF. CALL LIGHT WITHIN REACH. SITTER PRESENT . WILL CONTINUE TO MONITOR.
--- NOTE | 2017-10-23 22:45 | NUR ---
TELE/POLYGRAPH OPERATOR; PT IN BED SLEEPING. BREATHING NON LABORED. PER BREANN JANE PT ON SR 81.
[2017-10-24] VITALS (8 sets, daily range): BP systolic 140–175; BP diastolic 72–91
--- NOTE | 2017-10-24 | NUR ---
TELE/CONSULTING SERVICES MANAGER; PT AT THIS TIME LAYING IN BED SLEEPING. ABLE TO TAKE PT'S VITAL SIGNS THEN PT BACK TO SLEEP.
--- NOTE | 2017-10-24 00:45 | NUR ---
TELE/TANK TRUCK MILK RECEIVER; PT WOKE UP ASKED FOR FOOD HE WANTS VANILLA PUDDING X2 GIVEN AND PT ATE IT ALL. PT ENCOURAGED TO GOOD TO SLEEP.
--- NOTE | 2017-10-24 01:15 | NUR ---
TELE/DRAFTER CIVIL (CAD); PT WENT TO THE BATHROOM WITH ASSIST TO VOID. I TOLD THE PT NOT TO FLASH THE TOILET I WOULD LIKE TO SEE IF PT REALLY VOIDING. HE VOIDED UNMEASURED SMALL AMOUNT YELLOW COLOR. NO BM. PT ASSISTED BACK TO BED. OFFERED TO WEAR HOSPITAL GOWN BUT DOES NOT WANT IT. I OFFERED SLEEPING MED BUT REFUSED.
--- NOTE | 2017-10-24 02:00 | NUR ---
TELE/SOCIAL WELFARE RESEARCH WORKER; PT IN BED ON SUPINE POSITION SLEEPING QUIETLY. BREATHING NON LABORED. WILL CONTINUE TO MONITOR. SITTER PRESENT.
--- NOTE | 2017-10-24 04:00 | NUR ---
TELE/BYPRODUCTS MAKER; PT IN BED STILL SLEEPING. BREATHING NON LABORED. CONTINUE TO MONITOR.
--- NOTE | 2017-10-24 05:00 | NUR ---
TELE/FINANCIAL SERVICE REP; DUE PO MED. GIVEN PT TOOK IT WITHOUT PROBLEM IN SWALLOWING. OFFERED AGAIN TO WEAR HOSPITAL GOWN STILL REFUSED WANTS TO WEAR HIS OWN CLOTHING WHAT HE IS WEARING .
[2017-10-24] MEDS: hydrALAZINE HCL 25 MG TABLET PO SCH ×3 (05:03→21:09)
--- NOTE | 2017-10-24 05:20 | NUR ---
TELE/ASSISTANT ACCOUNTING MANAGER; PT ON SR 76.
--- NOTE | 2017-10-24 05:55 | NUR ---
TELE/SALESPERSON STEREO EQUIPMENT; PT WENT TO THE BATHROOM WITH HELP AND VOIDED ONLY YELLOW URINE SMALL AMOUNT , UNMEASURED. ASSISTED BACK TO BED.
--- NOTE | 2017-10-24 06:00 | NUR ---
TELE/SKIP MINER; PT REFUSED MORNING BED BATH. IN BED RESTING. WILL CONTINUE TO MONITOR. SITTER PRESENT AT ALL TIMES.
--- NOTE | 2017-10-24 06:47 | NUR ---
TELE/HOSIERY KNITTER; PT SLEPT FAIRLY LAST NIGHT. DENIES ANY PAIN. WT 136 # BY STANDING SCALE. BREATHING NON LABORED. PT IS COOPERATIVE AND FOLLOWS COMMAND. OCC. PT TALKING TO HIMSELF. SITTER PRESENT AT ALL TIMES. CONTINUE TO MONITOR. WILL ENDORSE TO THE DAY SHIFT NURSE FOR CONTINUITY OF CARE.
[2017-10-24] MEDS: PANTOPRAZOLE 40 MG TABLET.DR PO SCH (09:00)
[2017-10-24] MEDS: ASPIRIN 81 MG TAB.CHEW PO SCH (09:29)
[2017-10-24] MEDS: MUPIROCIN OINT 2% 22 GM TUBE SCH ×2 (09:29→21:12)
[2017-10-24] MEDS: FOLIC ACID 1 MG TABLET PO SCH (09:30)
[2017-10-24] MEDS: CARVEDILOL 6.25 MG TABLET PO SCH ×2 (09:30→17:15)
[2017-10-24] MEDS: CINACALCET HCL 30 MG TABLET PO SCH (09:31)
[2017-10-24] MEDS: BENAZEPRIL HCL 20 MG TABLET PO SCH ×2 (09:31→17:15)
[2017-10-24] MEDS: ASCORBIC ACID 500 MG TABLET PO SCH (09:32)
[2017-10-24] MEDS: CYANOCOBALAMIN 500 MCG TABLET PO SCH (09:32)
[2017-10-24] MEDS: VITAMIN B COMP W-C 1 TAB TABLET PO SCH (09:32)
[2017-10-24] MEDS: ISOSORBIDE MONONITRATE (30MG) 30 MG TAB.SR.24H PO SCH (09:33)
--- NOTE | 2017-10-24 10:36 | NUR ---
PATIENT HAS HISTORY OF NON-COMPLIANCE WITH DIALYSIS. PATIENT HAS SITTER AT BED SIDE. NOTED TEAGAN CATH ON LEFT CHEST WALL. 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 THAT IS WHY I CAN GO TO MY DIALYSIS BECAUSE I GO SHOPPING AFTER THE [place] FOR A WAY TO MAKE A LIVING." PATIENT TEACHING AND REINFORCEMENT ON COMPLIANCE WITH MEDICAL TREATMENT. PATIENT AGREED. PATIENT TEACHING AND REINFORCEMENT FOR HYPERTENSIVE MEDICATION WHILE ON DIALYSIS. PATIENT VERBALIZED UNDERSTANDING OF INSTRUCTIONS.
--- NOTE | 2017-10-24 11:54 | NUR ---
WHILE ROUNDING NURSE NOTED DIALYSIS NURSE AT BEDSIDE. CALL LIGHT WITH IN REACH AND SITTER AT BED SIDE. PATIENT IS NON COMPLIANT WITH H.D. TREATMENT X 3. PATIENT TEACHING AND REINFORCEMENT ON COMPLIANCE WITH PLAN OF CARE FOR H.D. PATIENT VERBALIZED UNDERSTANDING OF INSTRUCTIONS. PER PATIENT; "DR. VEGA HAS TOLD ME NOT TO DO HEMODIALYSIS ANY MORE." PATIENT INSTRUCTED ON COMPLIANCE WITH TREATMENT AND CAREPLAN WITH DIALYSIS NURSE AT BEDSIDE. H.D. NURSE SPOKE TO PATIENT. BHARAT WHITFIELD.
--- NOTE | 2017-10-24 19:00 | NUR ---
MS RN OPENING RECEIVE PATIENT IN BED AWAKE A/O X 3, 1:1 SITTER, COMFORTABLE, STABLE CONDITION. NO C/O PAIN, NO DISTRESS NOTED, SAFETY MEASURES IN PLACE. CALL LIGHT IN REACH. WILL MONITOR.
[2017-10-24] MEDS: MIRTAZAPINE 15 MG TABLET PO SCH (21:10)
[2017-10-24] MEDS: ATORVASTATIN 10 MG TABLET PO SCH (21:10)
[2017-10-25] VITALS: BP 155/90
[2017-10-25 04:00] VITALS: BP 147/80
[2017-10-25] MEDS: hydrALAZINE HCL 25 MG TABLET PO SCH ×3 (05:33→21:20)
--- NOTE | 2017-10-25 06:29 | NUR ---
FIELD SERVICER CLOSING NOTES PT COMFORTABLY ASLEEP AND EASILY AWAKEN, TOLERATING ROOM AIR 99% ATTACH TO TELE MONITOR SR 73'S STABLE CONDITION. RESPIRATION EVEN AND UNLABORED. KEPT CLEAN AND DRY AND COMFORTABLE, ALL NURSING CARE RENDERED. NEEDS ATTENDED AND ANTICIPATED, 1:1 SITTER. GOOD SKIN CARE PROVIDED. FREQUENT VISUAL CHECK DONE FOR SAFETY EVERY 2 HOURS. ON LOW BED AT ALL TIMES TO ENSURE SAFETY. SAFE HAZARD FREE ENVIRONMENT PROVIDED. NO COMPLAINS OF PAIN. CALL LIGHT WITHIN EASY TO REACH. WILL ENDORSE NEXT SHIFT CONTINUITY OF CARE. MAINTAINS CONTACT ISOLATION.
--- NOTE | 2017-10-25 07:29 | NUR ---
HAND WOODWORKING SANDER OPENING NOTES PT RECEIVED AWAKE IN BED IN NO ACUTE SIGNS OF DISTRESS. SITTER AT BEDSIDE FOR CLOSE MONITORING. A/O X2, SAME VERBALLY RESPONSIVE, DENIES PAIN OR DISCOMFORTS AT THIS TIME. ON ROOM AIR, TOLERATING WELL WITH NO SOB NOTED. ON TELE MONITORING WITH CURRENT READING OF SR 73 AND HR OF 84. IV ACCESS ON RIGHT HAND INTACT AND PATENT./ HD CATH ON LCW IN PLACED. BED ON LOW AND LOCKED POSITION. CALL LIGHT WITHIN REACH. SAFE AND HAZARD FREE ENVIRONMENT MAINTAINED. CONTACT PRECAUTIONS MAINTAINED FOR MRSA OF NARES. WILL CONTINUE TO MONITOR PT ACCORDINGLY.
[2017-10-25 08:00] VITALS: BP 190/90
[2017-10-25] MEDS: ASPIRIN 81 MG TAB.CHEW PO SCH (08:25)
[2017-10-25] MEDS: CINACALCET HCL 30 MG TABLET PO SCH (08:26)
[2017-10-25] MEDS: PANTOPRAZOLE 40 MG TABLET.DR PO SCH (08:26)
[2017-10-25] MEDS: BENAZEPRIL HCL 20 MG TABLET PO SCH ×2 (08:26→16:19)
[2017-10-25] MEDS: VITAMIN B COMP W-C 1 TAB TABLET PO SCH (08:26)
[2017-10-25] MEDS: CYANOCOBALAMIN 500 MCG TABLET PO SCH (08:26)
[2017-10-25] MEDS: ISOSORBIDE MONONITRATE (30MG) 30 MG TAB.SR.24H PO SCH (08:26)
[2017-10-25] MEDS: FOLIC ACID 1 MG TABLET PO SCH (08:26)
[2017-10-25] MEDS: ASCORBIC ACID 500 MG TABLET PO SCH (08:26)
[2017-10-25] MEDS: CARVEDILOL 6.25 MG TABLET PO SCH ×2 (08:27→16:19)
[2017-10-25] MEDS: MUPIROCIN OINT 2% 22 GM TUBE SCH ×2 (08:27→21:20)
[2017-10-25 12:00] VITALS: BP 163/91
[2017-10-25] MEDS: CLONIDINE HCL 0.1 MG TABLET PO PRN (12:34)
--- NOTE | 2017-10-25 13:53 | NUR ---
RN NOTES DR JALYN NIELSON CAME UNIT, ASSESSED AND ENCOURAGED PT TO HAVE HEMODIALYSIS TODAY BUT PT REFUSED DESPITE EXPLAINING THE BENEFITS AND DISADVANTAGES OF HAVING AND NOT HAVING HEMODIALYSIS. PATIENT WAS VERY FIRMED ON HIS DECISION OF NOT HAVING IT. WILL CONTINUE TO MONITOR.
[2017-10-25 16:00] VITALS: BP 143/81
--- NOTE | 2017-10-25 18:39 | NUR ---
HIGH VALUE ASSOCIATE OPENING NOTES PATIENT RESTING IN BED AT MODERATE HIGH BACKREST WITH SITTER AT BEDSIDE FOR CLOSE MONITORING. A/O X2-3, SAME VERBALLY RESPONSIVE. NO SIGNIFICANT CHANGES NOTED THROUGHOUT THE DAY. CONTACT PRECAUTIONS MAINTAINED FOR MRSA OF NARES.ON TELE MONITORING WITH CURRENT READING OF SR HR OF 86, NO COMPLAINTS OF CHEST PAIN OR ANY DISCOMFORTS. ON ROOM AIR, TOLERATING WELL WITH NO SOB NOTED. IV ACCESS ON RIGHT HAND INTACT AND PATENT. HD CATH ON LCW IN PLACED. KEPT BED IN LOW AND LOCKED POSITION. CALL LIGHT WITHIN REACH. SAFE AND HAZARD FREE ENVIRONMENT MAINTAINED. ALL NEEDS AND CARE PROVIDED WELL. WILL ENDORSED TO DIESEL ENGINE FITTER NURSE FOR KIRIT.
[2017-10-25 20:00] VITALS: BP 131/76
[2017-10-25] MEDS: ATORVASTATIN 10 MG TABLET PO SCH (21:20)
[2017-10-25] MEDS: MIRTAZAPINE 15 MG TABLET PO SCH (21:20)
[2017-10-26 04:01] VITALS: BP 152/80
[2017-10-26] MEDS: hydrALAZINE HCL 25 MG TABLET PO SCH ×3 (05:23→21:32)
--- NOTE | 2017-10-26 07:25 | NUR ---
RN NOTES RECEIVED PT IN STABLE CONDITION, A&0X2 WITH PERIODS OF OUTBURSTS AND CONFUSION. ON ROOM AIR NO SOB OR DISTRESS NOTED. R HAND 2OG IV SITE INTACT. BED ALARM ON. BED LOCKED AND IN LOWEST POSITION, CALL LIGHT WITHIN REACH, WILL CONT TO FAITH.
[2017-10-26 08:00] VITALS: BP 186/73
[2017-10-26] MEDS: ASCORBIC ACID 500 MG TABLET PO SCH (08:27)
[2017-10-26] MEDS: VITAMIN B COMP W-C 1 TAB TABLET PO SCH (08:27)
[2017-10-26] MEDS: CARVEDILOL 6.25 MG TABLET PO SCH ×2 (08:27→16:29)
[2017-10-26] MEDS: FOLIC ACID 1 MG TABLET PO SCH (08:27)
[2017-10-26] MEDS: PANTOPRAZOLE 40 MG TABLET.DR PO SCH (08:27)
[2017-10-26] MEDS: CINACALCET HCL 30 MG TABLET PO SCH (08:27)
[2017-10-26] MEDS: ISOSORBIDE MONONITRATE (30MG) 30 MG TAB.SR.24H PO SCH (08:27)
[2017-10-26] MEDS: CYANOCOBALAMIN 500 MCG TABLET PO SCH (08:27)
[2017-10-26] MEDS: ASPIRIN 81 MG TAB.CHEW PO SCH (08:27)
[2017-10-26] MEDS: BENAZEPRIL HCL 20 MG TABLET PO SCH ×2 (08:27→16:28)
[2017-10-26] MEDS: MUPIROCIN OINT 2% 22 GM TUBE SCH ×2 (08:28→21:30)
--- NOTE | 2017-10-26 09:42 | NUR ---
LEFT MESSAGE ON DR. FIGUEROA EMERGENCY VOICEMAIL/OFFICE VOICEMAIL REGARDING PATIENT NOT SEEN BY HIM SINCE ADMISSION(NO PROGRESS NOTES FROM DR. FIGUEROA)AWAITS RESPONSE.NSG. SUP MADE AWARE.
--- NOTE | 2017-10-26 09:52 | NUR ---
DR. FIGUEROA CALLED HE WILL SEE PATIENT TODAY.
[2017-10-26 12:00] VITALS: BP 170/93
--- NOTE | 2017-10-26 13:00 | NUR ---
RN NOTES PT REFUSED HD. EDUCATION DONE BY HD NURSE AND MYSELF. PT STILL REFUSES.
[2017-10-26] MEDS: OLANZAPINE 5 MG/TAB.RAPDIS PO PRN (13:19)
--- NOTE | 2017-10-26 13:30 | NUR ---
RN NOTES PT AGITATED, YELLING. NO SITTER AT BEDSIDE. ZYPREXA ADMINISTERED. WILL CONT TO FAITH.
[2017-10-26 16:00] VITALS: BP 194/91
[2017-10-26] MEDS: CLONIDINE HCL 0.1 MG TABLET PO PRN (16:45)
--- NOTE | 2017-10-26 18:25 | NUR ---
RN NOTES PT REMAINED IN STABLE CONDITION, NO SIGNIFICANT CHANGES, ALL NEEDS MET. WILL ENDORSE TO ONCOMING SHIFT.
--- NOTE | 2017-10-26 19:20 | NUR ---
CLIPPER AND TURNER OPENING NOTES RECEIVED PT IN STABLE CONDITION, A & 0 X 2 WITH PERIODS OF OUTBURSTS AND CONFUSION. ON ROOM AIR NO SOB OR DISTRESS NOTED. R HAND 2OG IV SITE, SL, INTACT PATENT. ON 1:1 SITTER FOR SAFETY. BRP. ON TELE MONITORING WITH SR 80. BED ALARM ON. BED LOCKED AND IN LOWEST POSITION, CALL LIGHT WITHIN REACH, WILL CONT TO FAITH.
[2017-10-26 20:00] VITALS: BP 153/79
[2017-10-26] MEDS: MIRTAZAPINE 15 MG TABLET PO SCH (21:31)
[2017-10-26] MEDS: ATORVASTATIN 10 MG TABLET PO SCH (21:31)
[2017-10-27] VITALS: BP 135/70
--- NOTE | 2017-10-27 03:30 | NUR ---
SEEN BY PATIENT SEEN BY DR. FIGUEROA WITH NEW LAB ORDERS. NOTED & CARRIED OUT. WILL CONTINUE TO MONITOR THE PATIENT.
[2017-10-27 04:00] VITALS: BP 141/70
[2017-10-27] MEDS: hydrALAZINE HCL 25 MG TABLET PO SCH ×3 (05:43→21:11)
--- NOTE | 2017-10-27 06:38 | NUR ---
TIMBER REPAIRER CLOSING NOTES PT REMAINED IN STABLE CONDITION, NO SIGNIFICANT CHANGES, ON 1:1 SITTER FOR SAFETY. NO ANGER OUTBURSTS NOTED. ON TELE MONITORING WITH SR 71. SLEPT WELL. ALL NEEDS ATTENDED TO & MET. CALL LIGHT WITHIN REACH. BED IN LOW LOCKED POSITION. WILL ENDORSE TO ONCOMING SHIFT FOR KIRIT.
--- NOTE | 2017-10-27 07:56 | NUR ---
RN NOTES PATIENT ALERT AND ORIENTED, VERBALLY RESPONSIVE, BREATHING EVEN AND UNLABORED, NO DISTRESS NOTED, SITTER AT BEDSIDE, DENIES PAIN, APPEARS TO BE CALM AT THIS TIME. NEEDS ATTENDED AND MET, CALL LIGHT WITHIN REACH, WILL CONTINUE TO MONITOR.
[2017-10-27] MEDS: ASCORBIC ACID 500 MG TABLET PO SCH (08:16)
[2017-10-27] MEDS: VITAMIN B COMP W-C 1 TAB TABLET PO SCH (08:16)
[2017-10-27] MEDS: CYANOCOBALAMIN 500 MCG TABLET PO SCH (08:16)
[2017-10-27] MEDS: CARVEDILOL 6.25 MG TABLET PO SCH ×2 (08:16→16:16)
[2017-10-27] MEDS: FOLIC ACID 1 MG TABLET PO SCH (08:16)
[2017-10-27] MEDS: PANTOPRAZOLE 40 MG TABLET.DR PO SCH (08:16)
[2017-10-27] MEDS: ASPIRIN 81 MG TAB.CHEW PO SCH (08:16)
[2017-10-27] MEDS: CINACALCET HCL 30 MG TABLET PO SCH (08:16)
[2017-10-27] MEDS: BENAZEPRIL HCL 20 MG TABLET PO SCH ×2 (08:17→16:16)
[2017-10-27] MEDS: ISOSORBIDE MONONITRATE (30MG) 30 MG TAB.SR.24H PO SCH (08:17)
[2017-10-27] MEDS: MUPIROCIN OINT 2% 22 GM TUBE SCH ×2 (08:18→21:16)
[2017-10-27 08:24] VITALS: BP 145/71
[2017-10-27 09:54] LABS: BASOPHILS % (AUTO) 0.6 % (0.0-2.0); EOSINOPHILS # (AUTO) 0.4 /CMM (0.0-0.7); EOSINOPHILS % (AUTO) 5.8 % (0.0-6.0); HEMATOCRIT 29 % (39-51); HEMOGLOBIN 9.4 g/dL (13.5-17.5); LYMPHOCYTES # (AUTO) 1.3 /CMM (0.8-4.8); LYMPHOCYTES % (AUTO) 20.3 % (20.0-44.0); MEAN CORPUSCULAR HEMOGLOBIN 33 PG (26.0-33.0); MEAN CORPUSCULAR HGB CONC 33 g/dl (31.0-36.0); MEAN CORPUSCULAR VOLUME 101 fL (80-96); MONOCYTES # (AUTO) 0.5 /CMM (0.1-1.30); MONOCYTES % (AUTO) 8.4 % (2.0-12.0); NEUTROPHILS # (AUTO) 4.2 /CMM (1.8-8.9); NEUTROPHILS % (AUTO) 64.9 % (43.0-81.0); PLATELET COUNT (AUTO) 168 /CMM (150-450); RDW COEFFICIENT OF VARIATION 19.4 (11.5-15.0); RED BLOOD CELL COUNT(AUTO) 2.85 MIL/uL (4.5-6.0); WHITE BLOOD COUNT (AUTO) 6.5 K/uL (4.3-11.0)
[2017-10-27 10:19] LABS: ALBUMIN 3.5 g/dL (3.4-5.0); BILIRUBIN,TOTAL 0.4 mg/dL (0.2-1.0); CALCIUM, SERUM 7.5 mg/dL (8.5-10.1); TOTAL PROTEIN, SERUM 7.5 g/dL (6.4-8.2)
[2017-10-27 10:20] LABS: CREATININE 20.2 mg/dL (0.6-1.3)
[2017-10-27 10:22] LABS: POTASSIUM 7.1 mmol/L (3.5-5.1)
--- NOTE | 2017-10-27 10:29 | NUR ---
RN NOTES RECEIVED CRITICAL LAB RESULTS, PLACED A CALL TO DR. FIGUEROA, LEFT A MESSAGE IN HIS OFFICE, PER PRODUCT TEST ENGINEER, SHE WILL HAVE THE DOCTOR CALL ME BACK. TELE MONITOR SHOWS SR 72, PATIENT ALERT AND ORIENTED X2. NO S/SX OF DISTRESS AT THIS TIME. WILL CONTINUE TO CLOSELY MONITOR.
--- NOTE | 2017-10-27 10:45 | NUR ---
RN NOTES PAGED DR. NIELSON. WAITING FOR A CALL BACK.
[2017-10-27] MEDS ORDERED: SODIUM POLYSTYRENE SULFONATE 15 G/60 ML BOTTLE PO ONE ×3 (11:30→13:30)
--- NOTE | 2017-10-27 11:32 | NUR ---
RN NOTES RECEIVED A CALL FROM DR. FIGUEROA, RECEIVED NEW ORDERS. ORDERS NOTED AND CARRIED OUT.
--- NOTE | 2017-10-27 12:30 | NUR ---
RN NOTES FOLLOWED UP WITH PHARMACY TWICE RE: KAYEXELATE, IT WAS DUE AT 1130, PER PHARMACY STAFF WILL SEND RIGHT AWAY.
--- NOTE | 2017-10-27 13:36 | NUR ---
RN NOTES INFORMED PATIENT RE: KAYEXELATE MEDICATION, AGREED AT FIRST, BUT WHEN PATIENT SAW THE MEDICATION AND ITS LIQUID, HE REFUSED. EXPLAINED RISKS AND BENEFITS, STILL REFUSED. WILL CALL . Addendum: 10/27/17 at 1338 by WENDI CARR RN ADDENDUM: MEDICATIONS WASTED.
--- NOTE | 2017-10-27 14:46 | NUR ---
RN NOTES INFORMED DR. FIGUEROA RE: PATIENT'S REFUSAL OF KAYEXELATE, PER MD, ASK PATIENT IF HE WANTS TO TAKE IT RECTALLY. PATIENT SAID, "NO". DR. FIGUEROA AWARE, STILL WAITING FOR NEW ORDERS. Addendum: 10/27/17 at 1503 by WENDI CARR RN ADDENDUM: DR. FIGUEROA INSTRUCTED ME TO ASK THE PATIENT IF HE WILL FINALLY AGREE TO HEMODIALYSIS. WHEN MENTIONED TO PATIENT, HE GOT UPSET, SAID "NO GET OUT OF MY ROOM NOW." I TRIED EXPLAINING RISKS AND BENEFITS, PATIENT SCREAMED AND TOLD STAFF TO LEAVE THE ROOM. AWARE.
[2017-10-27] MEDS: CLONIDINE HCL 0.1 MG TABLET PO PRN (16:16)
[2017-10-27 16:19] VITALS: BP 163/85
--- NOTE | 2017-10-27 18:29 | NUR ---
RN NOTES PATIENT ALERT AND ORIENTED X2, K LEVEL ELEVATED, BUT PATIENT REMAINS TO BE ASYMPTOMATIC, NO CHANGE IN LOC, DENIES CHEST PAIN, HR WITHIN RANGE, NO SOB NOTED, NON-COMPLIANT WITH SOME MEDICATIONS. PATIENT STILL REFUSING DIALYSIS, RE-EDUCATED BUT PATIENT BECAME UPSET. NEEDS ATTENDED AND ANTICIPATED. CALL LIGHT WITHIN REACH, SITTER AT BEDSIDE, SAFETY MEASURES IN PLACED, WILL ENDORSE TO DRIER AND GRINDER TENDER FOR KIRIT.
[2017-10-27 20:00] VITALS: BP 130/75
--- NOTE | 2017-10-27 20:00 | NUR ---
RN NOTES PATIENT ALERT AND ORIENTED X2, BUT PATIENT REMAINS TO BE ASYMPTOMATIC, NO CHANGE IN LOC, HR WITHIN RANGE, NO SOB, SITTER AT BEDSIDE CALL LIGHT WITHIN REACH, SITTER AT BEDSIDE, SAFETY MEASURES IN PLACED, WILL CONT TO MONITOR.
[2017-10-27] MEDS: ATORVASTATIN 10 MG TABLET PO SCH (21:10)
[2017-10-27] MEDS: MIRTAZAPINE 15 MG TABLET PO SCH (21:11)
[2017-10-28] MEDS ORDERED: SODIUM POLYSTYRENE SULFONATE 15 G/60 ML BOTTLE ONE (01:20)
[2017-10-28] MEDS: SODIUM POLYSTYRENE SULFONATE 15 G/60 ML BOTTLE PO ONE ×2 (01:24→01:30)
--- NOTE | 2017-10-28 01:30 | NUR ---
RN NOTES PT WAS GIVEN 30G OF KAYEXELATE, 60G WAS ORDERED, ONLY 30G WAS AVAILABLE. WILL CALL PHARMACY TO REQUEST ANOTHER 30G AND WILL ENDORSE TO AM RN
[2017-10-28 04:00] VITALS: BP 130/71
[2017-10-28] MEDS: hydrALAZINE HCL 25 MG TABLET PO SCH ×3 (04:24→21:33)
--- NOTE | 2017-10-28 06:08 | NUR ---
RN CLOSING NOTES PT REMAINED IN STABLE CONDITION, NO SIGNIFICANT CHANGES, ON 1:1 SITTER FOR SAFETY. NO ANGER OUTBURSTS NOTED. SLEPT WELL. ALL NEEDS ATTENDED TO & MET. CALL LIGHT WITHIN REACH. BED IN LOW LOCKED POSITION. WILL ENDORSE TO ONCOMING SHIFT FOR KIRIT.
--- NOTE | 2017-10-28 07:31 | NUR ---
RN NOTES RECEIVED PT FROM FIELD SERVICE TECHNICIAN, RESTING IN BED, A&0X2, 1:1 SITTER AT BEDSIDE FOR SAFETY. ON ROOM AIR NO SOB OR DISTRESS NOTED. L HAND 20G IV SITE INTACT NO IVF. BED LOCKED AND IN LOWEST POSITION, CALL LIGHT WITHIN REACH, WILL CONT TO FAITH.
[2017-10-28 07:43] LABS: BASOPHILS % (AUTO) 0.7 % (0.0-2.0); EOSINOPHILS # (AUTO) 0.3 /CMM (0.0-0.7); EOSINOPHILS % (AUTO) 4.8 % (0.0-6.0); HEMATOCRIT 27 % (39-51); LYMPHOCYTES # (AUTO) 1.2 /CMM (0.8-4.8); LYMPHOCYTES % (AUTO) 18.3 % (20.0-44.0); MEAN CORPUSCULAR HEMOGLOBIN 34 PG (26.0-33.0); MEAN CORPUSCULAR HGB CONC 33 g/dl (31.0-36.0); MEAN CORPUSCULAR VOLUME 101 fL (80-96); MONOCYTES # (AUTO) 0.6 /CMM (0.1-1.30); MONOCYTES % (AUTO) 8.9 % (2.0-12.0); NEUTROPHILS # (AUTO) 4.5 /CMM (1.8-8.9); NEUTROPHILS % (AUTO) 67.3 % (43.0-81.0); PLATELET COUNT (AUTO) 165 /CMM (150-450); RDW COEFFICIENT OF VARIATION 20.2 (11.5-15.0); RED BLOOD CELL COUNT(AUTO) 2.68 MIL/uL (4.5-6.0); WHITE BLOOD COUNT (AUTO) 6.7 K/uL (4.3-11.0)
[2017-10-28 08:00] VITALS: BP 167/84
[2017-10-28] MEDS: BENAZEPRIL HCL 20 MG TABLET PO SCH ×2 (08:22→17:00)
[2017-10-28] MEDS: CINACALCET HCL 30 MG TABLET PO SCH (08:22)
[2017-10-28] MEDS: CLONIDINE HCL 0.1 MG TABLET PO PRN (08:22)
[2017-10-28] MEDS: FOLIC ACID 1 MG TABLET PO SCH (08:22)
[2017-10-28] MEDS: ISOSORBIDE MONONITRATE (30MG) 30 MG TAB.SR.24H PO SCH (08:23)
[2017-10-28] MEDS: CYANOCOBALAMIN 500 MCG TABLET PO SCH (08:23)
[2017-10-28] MEDS: PANTOPRAZOLE 40 MG TABLET.DR PO SCH (08:23)
[2017-10-28] MEDS: ASPIRIN 81 MG TAB.CHEW PO SCH (08:23)
[2017-10-28] MEDS: MUPIROCIN OINT 2% 22 GM TUBE SCH ×2 (08:24→21:34)
[2017-10-28] MEDS: CARVEDILOL 6.25 MG TABLET PO SCH ×2 (08:24→17:00)
[2017-10-28] MEDS: VITAMIN B COMP W-C 1 TAB TABLET PO SCH (08:24)
[2017-10-28] MEDS: ASCORBIC ACID 500 MG TABLET PO SCH (08:24)
[2017-10-28] MEDS: OLANZAPINE 5 MG/TAB.RAPDIS PO PRN ×2 (09:57→17:48)
[2017-10-28] MEDS: FLUTICASONE PROPIONATE 16 GM BOTTLE NS SCH (12:00)
[2017-10-28 15:57] LABS: CALCIUM, SERUM 7.2 mg/dL (8.5-10.1); POTASSIUM 5.1 mmol/L (3.5-5.1)
[2017-10-28 16:00] VITALS: BP 158/71
[2017-10-28] MEDS ORDERED: SODIUM POLYSTYRENE SULFONATE 15 G/60 ML BOTTLE PO ONE (16:30)
--- NOTE | 2017-10-28 17:00 | NUR ---
RN NOTES PTS 1700 BP MEDS HELP, DIALYSIS NURSE WILL BE HERE IN 1-2HR. PT AGREED TO HAVE HD TODAY.
[2017-10-28 17:52] LABS: CREATININE 20.8 mg/dL (0.6-1.3)
--- NOTE | 2017-10-28 18:22 | NUR ---
RN NOTES PT REMAINED IN STABLE CONDITION THROUGHOUT THE SHIFT, ALL NEEDS MET. PT HAD EPISODES OF YELLING AND AGITATION, ZYPREXA ADMINISTERED. PT RESTING IN BED NOW. WILL ENDORSE TO ONCOMING SHIFT.
[2017-10-28 20:00] VITALS: BP 161/75
--- NOTE | 2017-10-28 21:06 | NUR ---
MS-1/INTERNATIONAL RECRUITER DURING HD PT NOTED WITH SUDDEN DROP IN BP 106/45. PT BEGAN VOMITING. PT HAD A LARGE EPISODE OF EMESIS. HEAD OF BED WAS RAISED AND AIRWAY WAS SUCTIONED. HD NURSE QUICKLY GAVE THE PT NS BOLUS BP RAISED TO 155/93. PT STOPPED VOMITING. BUT STATES HE FEELS NAUSEOUS STILL. ZOFRAN WILL BE ADMINISTERED AFTER HD. WILL CONTINUE TO MONITOR CLOSELY.
--- NOTE | 2017-10-28 21:26 | NUR ---
MS-1/FLEXOGRAPHIC PRESS SET UP OPERATOR HD COMPLETE 1.8L REMOVED. WILL CONTINUE TO MONITOR.
[2017-10-28] MEDS: ATORVASTATIN 10 MG TABLET PO SCH (21:33)
[2017-10-28] MEDS: MIRTAZAPINE 15 MG TABLET PO SCH (21:33)
[2017-10-28] MEDS: ONDANSETRON HCL/PF 4 MG/2 ML VIAL IVP PRN (21:33)
[2017-10-29] MEDS ORDERED: PROMETHAZINE HCL 25 MG TABLET PO PRN
[2017-10-29] MEDS ORDERED: PROMETHAZINE HCL 25 MG TABLET ONE (00:51)
[2017-10-29 04:00] VITALS: BP 154/73
[2017-10-29] MEDS: hydrALAZINE HCL 25 MG TABLET PO SCH ×3 (05:30→21:19)
--- NOTE | 2017-10-29 07:30 | NUR ---
RN OPENING NOTES RECEIVED PT. A/OX2. PT STABLE AND RESTING IN BED. NO S/S OF RESP DISTRESS OR SOB. NO C/O PAIN AT THIS TIME. PT IS ON CONTACT ISOLATION FOR MRSA - NARES. PER CUSTOMER LIAISON REPORT, HD PERFORMED ON 10/28/17. ADDITIONAL HD SCHEDULED FOR TODAY, 10/29. IV ACCESS LOCATED ON RIGHT HAND 20G, SL. HD CATH LOCATED ON LEFT CHEST WALL. SAFETY MEASURES IN PLACE, CALL LIGHT WITHIN REACH. WILL CONTINUE TO MONITOR.
[2017-10-29 08:00] VITALS: BP 167/87
[2017-10-29] MEDS: MUPIROCIN OINT 2% 22 GM TUBE SCH ×2 (08:13→21:19)
[2017-10-29] MEDS: FLUTICASONE PROPIONATE 16 GM BOTTLE NS SCH (08:13)
[2017-10-29] MEDS: ISOSORBIDE MONONITRATE (30MG) 30 MG TAB.SR.24H PO SCH (08:14)
[2017-10-29] MEDS: PANTOPRAZOLE 40 MG TABLET.DR PO SCH (08:14)
[2017-10-29] MEDS: CARVEDILOL 6.25 MG TABLET PO SCH ×2 (08:14→17:00)
[2017-10-29] MEDS: CINACALCET HCL 30 MG TABLET PO SCH (08:14)
[2017-10-29] MEDS: ASCORBIC ACID 500 MG TABLET PO SCH (08:15)
[2017-10-29] MEDS: FOLIC ACID 1 MG TABLET PO SCH (08:15)
[2017-10-29] MEDS: ASPIRIN 81 MG TAB.CHEW PO SCH (08:15)
[2017-10-29] MEDS: BENAZEPRIL HCL 20 MG TABLET PO SCH ×2 (08:15→17:00)
[2017-10-29] MEDS: VITAMIN B COMP W-C 1 TAB TABLET PO SCH (08:15)
[2017-10-29] MEDS: CYANOCOBALAMIN 500 MCG TABLET PO SCH (08:15)
[2017-10-29 08:41] LABS: BASOPHILS # (AUTO) 0.1 /CMM (0.0-0.2); BASOPHILS % (AUTO) 0.9 % (0.0-2.0); EOSINOPHILS # (AUTO) 0.2 /CMM (0.0-0.7); EOSINOPHILS % (AUTO) 4.1 % (0.0-6.0); HEMATOCRIT 29 % (39-51); HEMOGLOBIN 9.6 g/dL (13.5-17.5); LYMPHOCYTES # (AUTO) 0.7 /CMM (0.8-4.8); LYMPHOCYTES % (AUTO) 11.7 % (20.0-44.0); MEAN CORPUSCULAR HEMOGLOBIN 33 PG (26.0-33.0); MEAN CORPUSCULAR HGB CONC 33 g/dl (31.0-36.0); MEAN CORPUSCULAR VOLUME 100 fL (80-96); MONOCYTES # (AUTO) 0.6 /CMM (0.1-1.30); NEUTROPHILS # (AUTO) 4.3 /CMM (1.8-8.9); NEUTROPHILS % (AUTO) 73.3 % (43.0-81.0); PLATELET COUNT (AUTO) 106 /CMM (150-450); RDW COEFFICIENT OF VARIATION 20.5 (11.5-15.0); RED BLOOD CELL COUNT(AUTO) 2.93 MIL/uL (4.5-6.0); WHITE BLOOD COUNT (AUTO) 5.9 K/uL (4.3-11.0)
[2017-10-29 08:51] LABS: CALCIUM, SERUM 7.6 mg/dL (8.5-10.1); CREATININE 15.2 mg/dL (0.6-1.3); POTASSIUM 4.1 mmol/L (3.5-5.1)
[2017-10-29 12:35] VITALS: BP 146/73
[2017-10-29 16:00] VITALS: BP 142/87
--- NOTE | 2017-10-29 19:30 | NUR ---
RN/MS NOTES: RECEIVED PT. IN BED W/ HOB ELEVATED. A/OX2. NO S/S OF ANY RESPIRATORY DISTRESS NOTED. ON RA SAT 98%. DENIES ANY C/O CHEST PAIN OR SOB AT PRESENT. PT IS ON CONTACT ISOLATION FOR MRSA - NARES. HAD HD ON 10/29/17. IV SL ON RH 20G PATENT AND INTACT W/ NO S/S OF INFECTION/INFILTRATION NOTED. HD CATH LOCATED ON LEFT CW W/ DRESSING C/D/I. SAFETY MEASURES IN PLACE. W/ 1:1 SITTER. CALL LIGHT WITHIN REACH. WILL CONTINUE TO MONITOR.
--- NOTE | 2017-10-29 19:44 | NUR ---
RN CLOSING NOTES PT IN BED RESTING AWAITING, SITTER AT BEDSIDE. NO S/S OF SOB OR RESP DISTRESS. ALL PT NEEDS ANTICIPATED AND MET, SAFETY MEASURES IN PLACE, CALL LIGHT IN REACH. WILL ENDORSE TO TALENT BUYER FOR KIRIT.
[2017-10-29 20:00] VITALS: BP 154/78
[2017-10-29] MEDS: ATORVASTATIN 10 MG TABLET PO SCH (21:20)
[2017-10-29] MEDS: MIRTAZAPINE 15 MG TABLET PO SCH (21:20)
[2017-10-30 04:00] VITALS: BP 146/82
[2017-10-30] MEDS: hydrALAZINE HCL 25 MG TABLET PO SCH ×3 (04:27→21:12)
--- NOTE | 2017-10-30 06:46 | NUR ---
RN/ MS NOTES: PT. IN BED RESTING AND SLEEPING W/ NO S/S OF RESPIRATORY DISTRESS. REPORT GIVEN TO NEXT SHIFT NURSE FOR KIRIT.
[2017-10-30 06:53] LABS: BASOPHILS % (AUTO) 0.7 % (0.0-2.0); EOSINOPHILS # (AUTO) 0.2 /CMM (0.0-0.7); HEMATOCRIT 28 % (39-51); HEMOGLOBIN 9.4 g/dL (13.5-17.5); LYMPHOCYTES # (AUTO) 1.2 /CMM (0.8-4.8); LYMPHOCYTES % (AUTO) 20.8 % (20.0-44.0); MEAN CORPUSCULAR HEMOGLOBIN 33 PG (26.0-33.0); MEAN CORPUSCULAR HGB CONC 33 g/dl (31.0-36.0); MEAN CORPUSCULAR VOLUME 100 fL (80-96); MONOCYTES # (AUTO) 0.9 /CMM (0.1-1.30); MONOCYTES % (AUTO) 14.8 % (2.0-12.0); NEUTROPHILS # (AUTO) 3.4 /CMM (1.8-8.9); NEUTROPHILS % (AUTO) 59.7 % (43.0-81.0); PLATELET COUNT (AUTO) 154 /CMM (150-450); RDW COEFFICIENT OF VARIATION 19.4 (11.5-15.0); RED BLOOD CELL COUNT(AUTO) 2.83 MIL/uL (4.5-6.0); WHITE BLOOD COUNT (AUTO) 5.7 K/uL (4.3-11.0)
[2017-10-30 07:10] LABS: CALCIUM, SERUM 8.2 mg/dL (8.5-10.1); POTASSIUM 3.2 mmol/L (3.5-5.1)
[2017-10-30 07:45] LABS: CREATININE 9.6 mg/dL (0.6-1.3)
[2017-10-30 08:00] VITALS: BP 147/92
[2017-10-30] MEDS: CINACALCET HCL 30 MG TABLET PO SCH (08:47)
[2017-10-30] MEDS: ASCORBIC ACID 500 MG TABLET PO SCH (08:47)
[2017-10-30] MEDS: CYANOCOBALAMIN 500 MCG TABLET PO SCH (08:47)
[2017-10-30] MEDS: VITAMIN B COMP W-C 1 TAB TABLET PO SCH (08:47)
[2017-10-30] MEDS: FOLIC ACID 1 MG TABLET PO SCH (08:47)
[2017-10-30] MEDS: ISOSORBIDE MONONITRATE (30MG) 30 MG TAB.SR.24H PO SCH (08:49)
[2017-10-30] MEDS: CARVEDILOL 6.25 MG TABLET PO SCH ×2 (08:51→17:00)
[2017-10-30] MEDS: ASPIRIN 81 MG TAB.CHEW PO SCH (08:52)
[2017-10-30] MEDS: PANTOPRAZOLE 40 MG TABLET.DR PO SCH (08:52)
[2017-10-30] MEDS: BENAZEPRIL HCL 20 MG TABLET PO SCH ×2 (08:52→17:00)
[2017-10-30] MEDS: FLUTICASONE PROPIONATE 16 GM BOTTLE NS SCH (09:04)
[2017-10-30] MEDS: MUPIROCIN OINT 2% 22 GM TUBE SCH ×2 (09:04→21:11)
--- NOTE | 2017-10-30 10:52 | NUR ---
No accucheck performed. Patient no episodes of hypo/hyperglycemia noted at this point and time. Patient is on a one to one sitter. Call light with in reach. Was not able to perform accucheck, no system access until 914. Patient is stable.
[2017-10-30 16:00] VITALS: BP 102/63
--- NOTE | 2017-10-30 19:30 | NUR ---
RN/MS NOTES: RECEIVED PT. IN BED W/ HOB ELEVATED. A/OX2. NO S/S OF ANY RESPIRATORY DISTRESS NOTED. ON RA SAT 97%. DENIES ANY C/O CHEST PAIN OR SOB AT PRESENT. PT IS ON CONTACT ISOLATION FOR MRSA - NARES. HAD HD ON 10/30/17 TOOK OUT 1.3 L OUT. IV SL ON RH 20G PATENT AND INTACT W/ NO S/S OF INFECTION/INFILTRATION NOTED. HD CATH LOCATED ON LEFT CW W/ DRESSING C/D/I. SAFETY MEASURES IN PLACE. W/ 1:1 SITTER. CALL LIGHT WITHIN REACH. WILL CONTINUE TO MONITOR.
[2017-10-30 20:00] VITALS: BP 124/84
[2017-10-30] MEDS: MIRTAZAPINE 15 MG TABLET PO SCH (21:11)
[2017-10-30] MEDS: ATORVASTATIN 10 MG TABLET PO SCH (21:12)
--- NOTE | 2017-10-31 02:19 | NUR ---
RN/MS NOTES : DR. FIGUEROA VISITED PT. W/ NEW OR[facility] TO [facility]
[2017-10-31 04:00] VITALS: BP 127/72
[2017-10-31] MEDS: hydrALAZINE HCL 25 MG TABLET PO SCH ×2 (05:35→13:00)
--- NOTE | 2017-10-31 07:01 | NUR ---
RN/MS NOTES: NO ACUTE CHANGES NOTED DURING THIS SHIFT. REPORT GIVEN TO NEXT SHIFT NURSE FOR KIRIT.
[2017-10-31 07:34] VITALS: BP 128/75
--- NOTE | 2017-10-31 08:00 | NUR ---
m/s centre[employer] radio operator: notes received pt in bed awake, a/ox3. pt for d'c to snf today. ate 75% of breakfast. continue on 1:1 sitter for safety. vss. in no apparent distress noted. will continue to monitor.
--- NOTE | 2017-10-31 10:00 | NUR ---
m/s procurement internship: notes pt sounds asleep at this. continue on 1:1 sitter. monitored closely. will continue to monitor.
[2017-10-31] MEDS: VITAMIN B COMP W-C 1 TAB TABLET PO SCH (10:38)
[2017-10-31] MEDS: ASPIRIN 81 MG TAB.CHEW PO SCH (10:38)
[2017-10-31] MEDS: CINACALCET HCL 30 MG TABLET PO SCH (10:38)
[2017-10-31] MEDS: PANTOPRAZOLE 40 MG TABLET.DR PO SCH (10:38)
[2017-10-31] MEDS: CYANOCOBALAMIN 500 MCG TABLET PO SCH (10:38)
[2017-10-31] MEDS: ASCORBIC ACID 500 MG TABLET PO SCH (10:38)
[2017-10-31] MEDS: CARVEDILOL 6.25 MG TABLET PO SCH ×2 (10:39→16:06)
[2017-10-31] MEDS: FOLIC ACID 1 MG TABLET PO SCH (10:39)
[2017-10-31] MEDS: BENAZEPRIL HCL 20 MG TABLET PO SCH ×3 (10:41→16:05)
[2017-10-31] MEDS: ISOSORBIDE MONONITRATE (30MG) 30 MG TAB.SR.24H PO SCH (10:42)
[2017-10-31] MEDS: MUPIROCIN OINT 2% 22 GM TUBE SCH (10:43)
[2017-10-31] MEDS: FLUTICASONE PROPIONATE 16 GM BOTTLE NS SCH (10:43)
--- NOTE | 2017-10-31 12:00 | NUR ---
m/s [employer] sports coach: notes sleeping at interval.
--- NOTE | 2017-10-31 14:45 | NUR ---
m/s cement handler: notes dr. black's office called and wants to know if pt has left the hospital. informed special education secretary case management will arrange for d'c to snf today and pt will go today per order. office wants to be called back once pt left the hospital per dr. black.
[2017-10-31 16:00] VITALS: BP 90/63
--- NOTE | 2017-10-31 16:00 | NUR ---
m/s cable ferry operator: notes per cn, pt to be picked up at 1900, pt made aware. machelle ([id number]) notified and made aware re: d'c back to snf, spoke to her over the phone.
[2017-10-31 16:06] VITALS: BP 90/63
--- NOTE | 2017-10-31 18:00 | NUR ---
m/s crushing foreman: notes [facility] notified and was informed by admitting that they haven't received any paperwork from us. cn and case management made aware, spoke to ness and will fax all the paperworks as stated. dinner served. will continue to monitor.
--- NOTE | 2017-10-31 18:30 | NUR ---
m/s ocular care technician: notes f/u made to ness and informed me that he already faxed everything and confirmed with leandra (admitting). called admitting at [facility], but wants me to call report in 10 mins.
--- NOTE | 2017-10-31 18:40 | NUR ---
m/s peter: notes called [facility], spoke to ariadne (rn) and informed me that she is not ready to take report because no one has told her and wants to call her back in half an hour, informed her that i will call her back in 10 mins due to pt schedule to leave here at 1900.
--- NOTE | 2017-10-31 18:50 | NUR ---
m/s babysitter: d'c instructions discharged instructions given to pt and verbalized understanding. copies provided and belongings returned to pt. awaiting for pickle maker. will continue to monitor.
--- NOTE | 2017-10-31 18:55 | NUR ---
m/s financial foundations representative: notes f/u made to snf, but nurse is not picking up her call, admitting made aware. will call back in 15 mins. awaiting for order picker. pt aware.
--- NOTE | 2017-10-31 19:10 | NUR ---
m/s plaster tender: notes placed another call to snf, spoke to ariadne (rn) and report given over the phone for continuity of care. still awaiting for ambulance.
--- NOTE | 2017-10-31 19:17 | NUR ---
m/s forensic specialist: notes h/l removed with tip intact with no bleeding, no redness, and no swelling noted.
--- NOTE | 2017-10-31 19:30 | NUR ---
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 report given to sue (rn) for continuity of care.
--- NOTE | 2017-10-31 19:30 | NUR ---
RN/MS NOTES: RECEIVED PT. IN BED SLEEPING W/ RESPIRATIONS EVEN AND UNLABORED. DENIES ANY C/O CHEST PAIN OR SOB AT PRESENT. HAS HD CATH ON LCW DRESSING C/D/I. PT. IS CONTINENT OF B/B. ON 1:1 SITTER. PT. IS SCHEDULED FOR DISCHARGE TODAY TO [facility]. WAITING FOR AMBULANCE. CALL LIGHT W/REACH. WILL CONTINUE TO MONITOR.
--- NOTE | 2017-10-31 20:30 | NUR ---
RN/MS NOTES. PT. LEFT VIA STRETCHER IN STABLE CONDITION.
[2017-11-01] MEDS ORDERED: EPOETIN ALFA (10,000 UNIT) 10,000 UNIT/ML VIAL IV ONE (12:30)
== END 2017-10-31 20:30 | DRG 291 ==
LOC: ER 12:09 → TELE-TD 14:45 → TELE1 10-22 14:01 → MEDSG1 10-27 10:48
PROVIDERS: ADMIT Internal Medicine Rheumatology; ATTEND Internal Medicine Rheumatology
PROC: 5A1D70Z Performance of Urinary Filtration, Intermittent, Less than 6 Hours Per Day (ICD-10-PCS; principal; 2017-10-21)
PROC: 5A1D70Z Performance of Urinary Filtration, Intermittent, Less than 6 Hours Per Day (ICD-10-PCS; 2017-10-22)
PROC: 5A1D70Z Performance of Urinary Filtration, Intermittent, Less than 6 Hours Per Day (ICD-10-PCS; 2017-10-25)
PROC: 5A1D70Z Performance of Urinary Filtration, Intermittent, Less than 6 Hours Per Day (ICD-10-PCS; 2017-10-26)
PROC: 5A1D70Z Performance of Urinary Filtration, Intermittent, Less than 6 Hours Per Day (ICD-10-PCS; 2017-10-28)
PROC: 5A1D70Z Performance of Urinary Filtration, Intermittent, Less than 6 Hours Per Day (ICD-10-PCS; 2017-10-29)
PROC: 5A1D70Z Performance of Urinary Filtration, Intermittent, Less than 6 Hours Per Day (ICD-10-PCS; 2017-10-30)
DX: I13.2 Hypertensive heart and chronic kidney disease with heart failure and with stage 5 chronic kidney disease, or end stage renal disease (principal); N18.6 End stage renal disease; E11.22 Type 2 diabetes mellitus with diabetic chronic kidney disease; F03.91 Unspecified dementia, unspecified severity, with behavioral disturbance; I69.354 Hemiplegia and hemiparesis following cerebral infarction affecting left non-dominant side; F20.0 Paranoid schizophrenia; I42.9 Cardiomyopathy, unspecified; E87.5 Hyperkalemia; I50.9 Heart failure, unspecified; E78.5 Hyperlipidemia, unspecified; F32.9 Major depressive disorder, single episode, unspecified; F17.210 Nicotine dependence, cigarettes, uncomplicated; D63.8 Anemia in other chronic diseases classified elsewhere; Z99.2 Dependence on renal dialysis; J44.9 Chronic obstructive pulmonary disease, unspecified; I25.2 Old myocardial infarction; N40.0 Benign prostatic hyperplasia without lower urinary tract symptoms; M10.9 Gout, unspecified
CPT/HCPCS: 36415; 71045-TC; 80048-TC; 80053-TC; 80061-TC; 82962-TC; 83735-TC; 84100-TC; 85025-TC; 85730-TC; 87081-TC; 90935-TC; A4606; J0885; J2405; Q0169; Z7610